=== PATIENT | female | born 1955 | race Caucasian/White ===

== ENCOUNTER 2016-09-20 15:36 | Inpatient (IN) | payer OTHER ==
[2016-09-20] MEDS ORDERED: NS 1,000 ML IV ONE (16:07)
--- NOTE | 2016-09-20 16:42 | UCPHY ---
H & P Patient Type: Established Chief Complaint Nursing Narrative: C/o shakiness since today, increased thirst, urinary urgency/frequency x 2 days. Denies flank pain, fevers. Time Seen by Provider: 09/20/16 15:56 HPI/ROS: CHIEF COMPLAINT: Shakiness, thirsty, urinary frequency HISTORY OF PRESENT ILLNESS: This is a 61-year-old patient with a significant history of diabetes for which she takes metformin, history of incomplete spinal cord paralysis, history of chronic pain presenting with complaints of for last 2 -3 days she has had urinary frequency, dysuria, and chills. No fever. She thinks she may have a urinary tract infection. She does have normal control of her bowels and bladder typically although she has been incontinent over the last several days. Patient also reports this morning that she felt she was having a diabetic episode with some confusion, headache, and feeling "shaky" today. Some nausea but no vomiting. No diarrhea. No chest pain, shortness of breath, palpitations, fainting, increase in her chronic pain. REVIEW OF SYSTEMS: Aside from elements discussed in the HPI, a comprehensive 10-point review of systems was reviewed and is negative. PAST MEDICAL HISTORY: Diabetes, incomplete spinal cord injury, Calvert's palsy SOCIAL HISTORY: Patient is a nonsmoker. She is here with her . She usually uses a walker. VITAL SIGNS Reviewed by me. GENERAL: Pleasant, well-developed, obvious right-sided facial weakness with incomplete eye closing and down turned mouth. HEENT: Atraumatic. Eyes: No icterus, no injection. Mouth: moist mucous membranes. No erythema or lesions. Neck: supple with no adenopathy. LUNGS: Clear to auscultation bilaterally, no wheezes, rhonchi or rales. CARDIAC: Regular rate and rhythm, no rubs, murmurs or gallops. ABDOMEN: Soft, nontender, nondistended, bowel sounds normal. BACK: No CVA tenderness. EXTREMITIES: No trauma. Chronic edema in lower extremities with venous stasis changes on the right. Healing wound in the right lower extremity. NEURO: Alert and oriented, moving all extremities x4. Sensation intact to light touch throughout. SKIN: Warm and dry, no rash. PSYCHIATRIC: Normal mentation, no agitation. - Personal History Current Tetanus Diphtheria and Acellular Pertussis (TDAP): Yes Tetanus Vaccine Date: 2012 - Medical/Surgical History Hx Asthma: No Hx Chronic Respiratory Disease: No Hx Diabetes: Yes Hx Cardiac Disease: No Hx Renal Disease: No Hx Cirrhosis: No Hx Alcoholism: No Hx HIV/AIDS: No Hx Splenectomy or Spleen Trauma: No Other PMH: DM, incomplete spinal cord injury, Hardy Palsy, osteomyletis, Cspine surgery, ortho surgeries, c section, ectopic preg, tonsilectomy, tubal ligation - Family History Significant Family History: No pertinent family hx - Social History Smoking Status: Never smoked Constitutional: Initial Vital Signs Temperature (C) 36.4 C 09/20/16 15:41 Heart Rate 69 09/20/16 15:41 Respiratory Rate 18 09/20/16 15:41 Blood Pressure 174/69 H 09/20/16 15:41 O2 Sat (%) 95 09/20/16 15:41 O2 Delivery Mode Room Air Allergies/Adverse Reactions: bacitracin [From Neosporin] Allergy (Intermediate, Verified 09/20/16 15:52) Rash bacitracin zinc [From Neosporin] Allergy (Intermediate, Verified 09/20/16 15:52) Rash gramicidin D [From Neosporin] Allergy (Intermediate, Verified 09/20/16 15:52) Rash neomycin sulfate [From Neosporin] Allergy (Intermediate, Verified 09/20/16 15:52 ) Rash polymyxin B [From Neosporin] Allergy (Intermediate, Verified 09/20/16 15:52) Rash polymyxin B sulfate [From Neosporin] Allergy (Intermediate, Verified 09/20/16 15 :52) Rash fluoroquinalones Allergy (Severe, Uncoded 09/20/16 15:52) muscle spasms Home Medications: Medication Instructions Recorded Baclofen [Baclofen 20 mg (*)] 10 mg PO BID@13,17 09/20/16 Baclofen [Baclofen 20 mg (*)] 20 mg PO QID@05,09,10,20 09/20/16 Dantrolene Sodium [Dantrium 25 mg 25 mg PO BID PRN 09/20/16 (*)] Guaifenesin/Pseudoephedrne HCl 1 each PO DAILY PRN 09/20/16 [Mucinex D ER 600-60 mg Tablet] Ibuprofen [Motrin (*)] 800 mg PO DAILY 09/20/16 LORazepam [Ativan (*)] 1 mg PO Q8H 09/20/16 Lansoprazole [Lansoprazole 15 mg] 15 mg PO DAILY 09/20/16 Levothyroxine [Synthroid 125 mcg 125 mcg PO TUWEFRSA@09/20/16 (*)] Levothyroxine [Synthroid 137 mcg 137 mcg PO SUMOTH@09/20/16 (*)] Lubiprostone [Amitiza 24 mcg (*)] 24 mcg PO DAILY 09/20/16 Methocarbamol [Robaxin 750 mg (*)] 375 mg PO BID 09/20/16 Morphine Sulfate [Morphine Sulfate] 30 mg PO TID@05,,09/20/16 Morphine Sulfate [Ms Contin] 15 mg PO TID@,,09/20/16 Multivitamins [Multivitamin (*)] 0.5 tab PO BID 09/20/16 Oxycodone HCl [Oxycodone HCl] 30 mg PO Q4H 09/20/16 Tizanidine HCl 4 mg PO BID 09/20/16 metFORMIN HCL [Glucophage 500 mg 500 mg PO BIDMEAL 09/20/16 (*)] traZODone [traZODONE 50MG (*)] 100 mg PO HS 09/20/16 valACYclovir [Valtrex (*)] 500 mg PO DAILY PRN 09/20/16 Medical Decision Making - Diagnostics EKG Interpretation: 12-LEAD EKG: Please see the full report in [facility]. My interpretation: Sinus rhythm, T-wave inversions in the anterior leads concerning for ischemia. No old EKGs available ED Course/Re-evaluation: 61-year-old female presents with symptoms of shakiness, feeling slightly confused, mild headache, feeling like her blood sugar is low, and concerns regarding a urinary tract infection. Patient's initial glucose was 117. EKG is concerned regarding potential ischemia. Laboratory evaluation is unremarkable including a troponin which was negative. Patient's urinalysis does not demonstrate any signs of infection. Long discussion was held with the patient concerning her symptoms of weakness, feeling poorly, and shakiness. This may represent cardiac ischemia. Patient now tells me that she has also fallen several times over the last 6 weeks. No injuries. She is not on any blood thinners. No loss of consciousness or direct head trauma with these falls. Given the patient's abnormal EKG in the setting of a 61-year-old diabetic with vague complaints of shakiness and feeling poorly I believe it is prudent to admit the patient to the hospital for further evaluation. Her course was discussed with Dr. Sergio Madrid. Patient is in agreement. She was transferred to [facility] and admitted to the PCU. Differential Diagnosis: Differential diagnosis of the patient's symptom complex was considered including but not limited to electrolyte abnormality, anemia, cardiac ischemia, CVA, spinal cord abnormality, and infectious causes. Consult/Admit Bed Type: Dr. Sergio Madrid, PCU - Data Points Laboratory Results: Laboratory Results 09/20/16 17:32 09/20/16 17:32 09/20/16 09/20/16 09/20/16 18:45 17:32 17:32 WBC 5.43 10^3/uL 10^3/uL (3.80-9.50) RBC 4.15 10^6/uL L 10^6/uL (4.18-5.33) Hgb 11.9 g/dL L g/dL (12.6-16.3) Hct 37.2 % L % (38.0-47.0) MCV 89.6 fL fL (81.5-99.8) MCH 28.7 pg pg (27.9-34.1) MCHC 32.0 g/dL L g/dL (32.4-36.7) RDW 13.2 % % (11.5-15.2) Plt Count 199 10^3/uL 10^3/uL (150-400) MPV 9.8 fL fL (8.7-11.7) Neut % (Auto) 68.1 % % (39.3-74.2) Lymph % (Auto) 20.6 % % (15.0-45.0) Graves % (Auto) 9.6 % % (4.5-13.0) Eos % (Auto) 0.9 % % (0.6-7.6) Baso % (Auto) 0.4 % % (0.3-1.7) Nucleat RBC Rel Count 0.0 % % (0.0-0.2) Absolute Neuts (auto) 3.70 10^3/uL 10^3/uL (1.70-6.50) Absolute Lymphs (auto) 1.12 10^3/uL 10^3/uL (1.00-3.00) Absolute Monos (auto) 0.52 10^3/uL 10^3/uL (0.30-0.80) Absolute Eos (auto) 0.05 10^3/uL 10^3/uL (0.03-0.40) Absolute Basos (auto) 0.02 10^3/uL 10^3/uL (0.02-0.10) Absolute Nucleated RBC 0.00 10^3/uL 10^3/uL (0-0.01) Immature Gran % 0.4 % % (0.0-1.1) Immature Gran # 0.02 10^3/uL 10^3/uL (0.00-0.10) Sodium 138 mEq/L mEq/L (134-144) Potassium 5.0 mEq/L mEq/L (3.5-5.2) Chloride 100 mEq/L mEq/L (97-110) Carbon Dioxide 29 mEq/l mEq/l (22-31) Anion Gap 9 mEq/L mEq/L (8-16) BUN 23 mg/dL mg/dL (7-23) Creatinine 0.6 mg/dL mg/dL (0.6-1.0) Estimated GFR > 60 Glucose 96 mg/dL mg/dL (70-100) POC Glucose Calcium 9.2 mg/dL mg/dL (8.5-10.4) Troponin I < 0.012 ng/mL ng/mL (0-0.034) Urine Color YELLOW Urine Appearance CLEAR Urine pH 6.5 (5.0-7.5) Ur Specific [place] 1.015 (1.002-1.030) Urine Protein NEGATIVE (NEGATIVE) Urine Ketones NEGATIVE (NEGATIVE) Urine Blood NEGATIVE (NEGATIVE) Urine Nitrate NEGATIVE (NEGATIVE) Urine Bilirubin NEGATIVE (NEGATIVE) Urine Urobilinogen 0.2 EU EU (0.2-1.0) Ur Leukocyte Esterase NEGATIVE (NEGATIVE) Urine RBC TNP Urine WBC REJ Ur Epithelial Cells TNP Urine Glucose NEGATIVE (NEGATIVE) 09/20/16 09/20/16 09/20/16 15:55 15:50 15:50 WBC REJ RBC TNP Hgb TNP Hct TNP MCV TNP MCH TNP MCHC TNP RDW TNP Plt Count TNP MPV TNP Neut % (Auto) TNP Lymph % (Auto) TNP Graves % (Auto) TNP Eos % (Auto) TNP Baso % (Auto) TNP Nucleat RBC Rel Count TNP Absolute Neuts (auto) TNP Absolute Lymphs (auto) TNP Absolute Monos (auto) TNP Absolute Eos (auto) TNP Absolute Basos (auto) TNP Absolute Nucleated RBC TNP Immature Gran % TNP Immature Gran # TNP Sodium TNP Potassium TNP Chloride TNP Carbon Dioxide TNP Anion Gap TNP BUN TNP Creatinine TNP Estimated GFR TNP Glucose TNP POC Glucose 117 mg/dL H mg/dL (70-100) Calcium TNP Troponin I REJ Urine Color Urine Appearance Urine pH Ur Specific [place] Urine Protein Urine Ketones Urine Blood Urine Nitrate Urine Bilirubin Urine Urobilinogen Ur Leukocyte Esterase Urine RBC Urine WBC Ur Epithelial Cells Urine Glucose Medications Given: Discontinued Medications Sodium Chloride (Ns) 1,000 mls @ 0 mls/hr IV ONCE ONE PRN Reason: Wide Open Stop: 09/20/16 16:08 Last Admin: 09/20/16 17:35 Dose: 1,000 mls Lorazepam (Ativan) 1 mg PO ONCE ONE Stop: 09/20/16 19:54 Last Admin: 09/20/16 20:10 Dose: 1 mg Morphine Sulfate (Ms Contin/Oramorph) 15 mg PO TID@05,13,21 JEREMIAH Stop: 09/30/16 23:01 Last Admin: 09/20/16 23:29 Dose: 15 mg Point of Care Test Results: 09/20/16 15:55 POC Glucose 117 H Departure - Departure Disposition: [facility] Inpatient Acute Clinical Impression: Weakness, Abnormal EKG Condition: Fair - PQRS PQRS Measurement: 134: Depression screening and followup, PRIME MD-PHQ2 (12 years and older) Over the last 2 weeks, how often have you been bothered by any of the following problems? 1. Feeling down, depressed, or hopeless? 2. Little interest or pleasure in doing things? Patient answered no to both 1 and 2 130: Documentation of medications. Reviewed all patient medications, doses, route and frequency. 226: Do you smoke? No. 47: 65 and older: Advanced care planning. Not applicable 51: 18 years old and older with diagnosis of COPD, spirometry performance. Patient has no history of COPD 52: 18 years old and older with COPD and symptoms of COPD or FEV1<60% predicted prescribed a B Agonist. Patient has no history of COPD
--- NOTE | 2016-09-20 16:55 | CPEKG ---
Heart Rate: 55 RR Interval: 1091 P-R Interval: 216 QRSD Interval: 106 QT Interval: 464 QTC Interval: 444 P Taylor: 36 QRS Taylor: 116 T Wave Taylor: 17 EKG Severity - ABNORMAL ECG - EKG Impression: SINUS RHYTHM EKG Impression: ABNORMAL T, CONSIDER ISCHEMIA, ANTERIOR LEADS Electronically Signed By: Marine Singh 21-Sep-2016 00:37:11
[2016-09-20 17:34] LABS: % IMMATURE GRANULYOCYTES 0.4 % (0.0-1.1); ABSOLUTE IMMATURE GRANULOCYTES 0.02 10^3/uL (0.00-0.10); ADD DIFF? NO; ADD MORPH? NO; ADD SCAN? NO; ATYPICAL LYMPHOCYTE FLAG 0 (0-99); FRAGMENT RBC FLAG 0 (0-99); HEMATOCRIT 37.2 % (38.0-47.0); HEMOGLOBIN 11.9 g/dL (12.6-16.3); LEFT SHIFT FLG 0 (0-99); LIPEMIA HEMOLYSIS FLAG 80 (0-99); MEAN CELL HEMOGLOBIN 28.7 pg (27.9-34.1); MEAN CELL VOLUME 89.6 fL (81.5-99.8); MEAN PLATELET VOLUME 9.8 fL (8.7-11.7); PLATELET CLUMPS FLAG 0 (0-99); PLATELET COUNT 199 10^3/uL (150-400); RED BLOOD CELL COUNT 4.15 10^6/uL (4.18-5.33); RED CELL DISTRIBUTION WIDTH 13.2 % (11.5-15.2)
[2016-09-20 17:46] LABS: ANION GAP 9 mEq/L (8-16); CALCIUM 9.2 mg/dL (8.5-10.4); CARBON DIOXIDE 29 mEq/l (22-31); CHLORIDE 100 mEq/L (97-110); CREATININE 0.6 mg/dL (0.6-1.0); GLOMERULAR FILTRATION RATE > 60; GLUCOSE 96 mg/dL (70-100)
[2016-09-20 17:49] LABS: SODIUM 138 mEq/L (134-144)
[2016-09-20 18:00] LABS: TROPONIN I < 0.012 ng/mL (0-0.034)
[2016-09-20 18:53] LABS: COLOR YELLOW; LEUKOCYTE ESTERASE,URINE NEGATIVE (NEGATIVE); NITRITE,URINE NEGATIVE (NEGATIVE); PH,URINE 6.5 (5.0-7.5)
[2016-09-20] MEDS ORDERED: LORazepam 1 MG TAB PO ONE (19:53)
[2016-09-20] MEDS ORDERED: ACETAMINOPHEN 325 MG TAB PO PRN (22:34)
[2016-09-20] MEDS ORDERED: oxyCODONE IR 5 MG TAB PO PRN (22:34)
[2016-09-20] MEDS ORDERED: ONDANSETRON DISINTEGRATING 4 MG TAB PO PRN (22:34)
[2016-09-20] MEDS ORDERED: ONDANSETRON 4 MG/2 ML VIAL IVP PRN (22:34)
[2016-09-20] MEDS ORDERED: traZODone 100 MG TAB PO PRN (22:55)
--- NOTE | 2016-09-20 22:56 | PDGENHP ---
History and Physical - Chief Complaint generalized weakness - History of Present Illness Patient is a 61-year-old female with a history type 2 diabetes, partial C1 spinal cord injury, hypothyroidism, osteoarthritis and PTSD who presented to [facility] complaining of generalized fatigue, lower extremity heaviness and urinary frequency. She states she 1st noticed her generalized fatigue about 3-5 days ago, as the days progress she felt heaviness in her legs , making it difficult for her to walk. She was unaware of any swelling in her legs, but states she never really looked, also reports chronic venous stasis changes of her skin but currently denies any pain or change in redness. Throughout this time she denies any overt fevers, chest pain, palpitations, shortness of breath, abdominal pain, nausea, vomiting or diarrhea. She also reports urinary frequency, but denies any dysuria or incontinence . Arrival to the [facility], patient was afebrile slightly hypertensive but hemodynamically stable. Labs revealed normal CBC, normal BMP with negative troponin. EKG revealed T-wave inversions in V2 to V4, with no prior to compare to. She also had extensive bilateral lower extremity edema. Given this she was transferred to [facility] for admission and further evaluation. History Information - Allergies/Home Medication List Allergies/Adverse Reactions: bacitracin [From Neosporin] Allergy (Intermediate, Verified 09/20/16 15:52) Rash bacitracin zinc [From Neosporin] Allergy (Intermediate, Verified 09/20/16 15:52) Rash gramicidin D [From Neosporin] Allergy (Intermediate, Verified 09/20/16 15:52) Rash neomycin sulfate [From Neosporin] Allergy (Intermediate, Verified 09/20/16 15:52 ) Rash polymyxin B [From Neosporin] Allergy (Intermediate, Verified 09/20/16 15:52) Rash polymyxin B sulfate [From Neosporin] Allergy (Intermediate, Verified 09/20/16 15 :52) Rash fluoroquinalones Allergy (Severe, Uncoded 09/20/16 15:52) muscle spasms Home Medications: Baclofen [Baclofen 20 mg (*)] 10 mg PO BID@13,17 09/20/16 [Last Taken 09/19/16] Baclofen [Baclofen 20 mg (*)] 20 mg PO QID@05,09,10,20 09/20/16 [Last Taken 10:00] Dantrolene Sodium [Dantrium 25 mg (*)] 25 mg PO BID PRN 09/20/16 [Last Taken 09:00] Guaifenesin/Pseudoephedrne HCl [Mucinex D ER 600-60 mg Tablet] 1 each PO DAILY PRN 09/20/16 [Last Taken 09/19/16] Ibuprofen [Motrin (*)] 800 mg PO DAILY 09/20/16 [Last Taken 09/19/16] LORazepam [Ativan (*)] 1 mg PO Q8H 09/20/16 [Last Taken 09/20/16 20:45] Lansoprazole [Lansoprazole 15 mg] 15 mg PO DAILY 09/20/16 [Last Taken 09/20/16] Levothyroxine [Synthroid 125 mcg (*)] 125 mcg PO TUWEFRSA@09/20/16 [Last Taken 09/20/16 06:00] Levothyroxine [Synthroid 137 mcg (*)] 137 mcg PO SUMOTH@09/20/16 [Last Taken 09/18/16] Lubiprostone [Amitiza 24 mcg (*)] 24 mcg PO DAILY 09/20/16 [Last Taken 09/20/16] Methocarbamol [Robaxin 750 mg (*)] 375 mg PO BID 09/20/16 [Last Taken 09/19/16] Morphine Sulfate [Morphine Sulfate] 30 mg PO TID@,,09/20/16 [Last Taken 09/20/16 13:00] Morphine Sulfate [Ms Contin] 15 mg PO TID@,,09/20/16 [Last Taken 13:00] Multivitamins [Multivitamin (*)] 0.5 tab PO BID 09/20/16 [Last Taken Unknown] Oxycodone HCl [Oxycodone HCl] 30 mg PO Q4H 09/20/16 [Last Taken 09/20/16 20:45] Tizanidine HCl 4 mg PO BID 09/20/16 [Last Taken 09/20/16 08:00] metFORMIN HCL [Glucophage 500 mg (*)] 500 mg PO BIDMEAL 09/20/16 [Last Taken 08:00] traZODone [traZODONE 50MG (*)] 100 mg PO HS 09/20/16 [Last Taken 09/19/16] valACYclovir [Valtrex (*)] 500 mg PO DAILY PRN 09/20/16 [Last Taken Unknown] I have personally reviewed and updated: family history, medical history, social history, surgical history - Past Medical History Additional medical history: Dm 2, on metformin only. partial spinal cord injury at C1. hypothyroidism. osteoarthritis. PTSD. right-sided Calvert's palsy. recently treated left ankle osteomyelitis, completed antibiotic course in mid August - Surgical History Additional surgical history: tonsillectomy. ectopic . x2. C-spine spinal cord untethering. left ankle/foot fracture repair. removal of left ankle hardware due to osteomyelitis. appendectomy - Family History Additional family history: father: Alzheimer's dementia, dm 2. mother: ETOH abuse - Social History Smoking Status: Never smoked Alcohol Use: None Drug Use: None Additional social history: patient lives with her and son. Ambulates with a walker Review of Systems ROS: 10pt was reviewed & negative except for what was stated in HPI & below Physical Exam Temp Pulse Resp BP Pulse Ox 36.3 C 65 16 159/77 H 97 09/20/16 21:15 09/20/16 21:15 09/20/16 21:15 09/20/16 21:15 09/20/16 21:15 O2 (L/minute) 2 Constitutional: no apparent distress, appears nourished, not in pain Eyes: PERRL, anicteric sclera, EOMI Ears, Nose, Mouth, Throat: moist mucous membranes, hearing normal, ears appear normal, no oral mucosal ulcers Cardiovascular: regular rate and rhythym, systolic murmur, pulses symmetric bilaterally, edema ( 2+ pitting edema of bilateral lower extremities to knee), No JVD Peripheral Pulses: 2+: dorsalis-pedis (R), dorsalis-pedis (L) Respiratory: no respiratory distress, no rales or rhonchi, clear to auscultation , No inspiratory crackles Gastrointestinal: normoactive bowel sounds, soft, non-tender abdomen, no palpable masses, No guarding, No rebound, No distension Genitourinary: no bladder fullness, no bladder tenderness Skin: other ( chronic venous stasis changes of bilateral lower extremities with erythema, superficial wound on right fuentes) Musculoskeletal: full muscle strength, no muscle tenderness, normal joint ROM, no joint effusions Neurologic: AAOx3, CN II-XII Intact, other ( no focal weakness, some sensory deficits in the lower extremity (chronic)) Lab Data & Imaging Review 09/20/16 17:32 09/20/16 17:32 WBC 5.43 10^3/uL (3.80-9.50) 09/20/16 17:32 RBC 4.15 10^6/uL (4.18-5.33) L 09/20/16 17:32 Hgb 11.9 g/dL (12.6-16.3) L 09/20/16 17:32 Hct 37.2 % (38.0-47.0) L 09/20/16 17:32 MCV 89.6 fL (81.5-99.8) 09/20/16 17:32 MCH 28.7 pg (27.9-34.1) 09/20/16 17:32 MCHC 32.0 g/dL (32.4-36.7) L 09/20/16 17:32 RDW 13.2 % (11.5-15.2) 09/20/16 17:32 Plt Count 199 10^3/uL (150-400) 09/20/16 17:32 MPV 9.8 fL (8.7-11.7) 09/20/16 17:32 Neut % (Auto) 68.1 % (39.3-74.2) 09/20/16 17:32 Lymph % (Auto) 20.6 % (15.0-45.0) 09/20/16 17:32 [place] % (Auto) 9.6 % (4.5-13.0) 09/20/16 17:32 Eos % (Auto) 0.9 % (0.6-7.6) 09/20/16 17:32 Baso % (Auto) 0.4 % (0.3-1.7) 09/20/16 17:32 Nucleat RBC Rel Count 0.0 % (0.0-0.2) 09/20/16 17:32 Absolute Neuts (auto) 3.70 10^3/uL (1.70-6.50) 02/18/17 17:32 Absolute Lymphs (auto) 1.12 10^3/uL (1.00-3.00) 09/20/16 17:32 Absolute Monos (auto) 0.52 10^3/uL (0.30-0.80) 09/20/16 17:32 Absolute Eos (auto) 0.05 10^3/uL (0.03-0.40) 09/20/16 17:32 Absolute Basos (auto) 0.02 10^3/uL (0.02-0.10) 09/20/16 17:32 Absolute Nucleated RBC 0.00 10^3/uL (0-0.01) 09/20/16 17:32 Immature Gran % 0.4 % (0.0-1.1) 09/20/16 17:32 Immature Gran # 0.02 10^3/uL (0.00-0.10) 09/20/16 17:32 Sodium 138 mEq/L (134-144) 09/20/16 17:32 Potassium 5.0 mEq/L (3.5-5.2) 09/20/16 17:32 Chloride 100 mEq/L (97-110) 09/20/16 17:32 Carbon Dioxide 29 mEq/l (22-31) 09/20/16 17:32 Anion Gap 9 mEq/L (8-16) 09/20/16 17:32 BUN 23 mg/dL (7-23) 09/20/16 17:32 Creatinine 0.6 mg/dL (0.6-1.0) 09/20/16 17:32 Estimated GFR > 60 09/20/16 17:32 Glucose 96 mg/dL (70-100) 09/20/16 17:32 POC Glucose 117 mg/dL (70-100) H 09/20/16 15:55 Calcium 9.2 mg/dL (8.5-10.4) 09/20/16 17:32 Troponin I < 0.012 ng/mL (0-0.034) 09/20/16 17:32 Urine Color YELLOW 09/20/16 18:45 Urine Appearance CLEAR 09/20/16 18:45 Urine pH 6.5 (5.0-7.5) 09/20/16 18:45 Ur Specific [place] 1.015 (1.002-1.030) 09/20/16 18:45 Urine Protein NEGATIVE (NEGATIVE) 09/20/16 18:45 Urine Ketones NEGATIVE (NEGATIVE) 09/20/16 18:45 Urine Blood NEGATIVE (NEGATIVE) 09/20/16 18:45 Urine Nitrate NEGATIVE (NEGATIVE) 09/20/16 18:45 Urine Bilirubin NEGATIVE (NEGATIVE) 09/20/16 18:45 Urine Urobilinogen 0.2 EU (0.2-1.0) 09/20/16 18:45 Ur Leukocyte Esterase NEGATIVE (NEGATIVE) 09/20/16 18:45 Urine RBC TNP 09/20/16 18:45 Urine WBC REJ 09/20/16 18:45 Ur Epithelial Cells TNP 09/20/16 18:45 Urine Glucose NEGATIVE (NEGATIVE) 09/20/16 18:45 Visualized and Interpreted EKG results: Yes EKG Interpretation: Positive for: normal sinsus rhythm ( with T-wave inversions in V2 through V4, III) Assessment & Plan Assessment: patient is a 61-year-old female with history of DM 2, partial spinal cord injury and hypothyroidism who presents to the ED with generalized fatigue, increasing lower extremity edema. EKG with nonspecific T-wave inversions, with no prior available for comparison. Plan: # generalized fatigue Patient states symptoms have been present for the past week or so, associated with lower extremity heaviness. Exam reveals pitting edema of lower extremities bilaterally, with no new focal neurologic changes. patient denies any cardiac symptomatology, other than fatigue. EKG shows sinus rhythm with nonspecific T-wave inversions. Infectious etiology seems unlikely given afebrile , without leukocytosis, UA negative and no infectious symptoms. Will check TTE to rule out new onset cardiomyopathy or valvular heart disease. Will also repeat EKG, trend troponins and monitor on telemetry, check TSH. # chronic venous stasis changes Patient states erythema and skin changes are at her baseline, the only new abnormality is the swelling. Given no leukocytosis, bilateral skin findings, low suspicion for cellulitis/infection. Will check lower extremity doppler as patient is at high risk for DVT due to limited mobility. Also f/u TTE and tsh. # chronic DM2 Glucose within normal limits on presentation. Will continue home metformin and monitor FS with sliding scale coverage prn. # upper spinal cord injury, chronic pain syndrome Patient on a number of spasticity related meds. It is possible polypharmacy is contributing to her fatigue, however, she denies any recent changes in her med regimen and requests continuation of all her home meds. # hypothyroidism Will check TSH to r/o hypothyroidism as cause of symptoms, and cont home synthroid dosing. # dispo: admit under observation status for generalized fatigue with normal labs work up. # gen: Cardiac/diabetic diet DVT ppx: lovenox Full code
[2016-09-20] MEDS ORDERED: LORazepam 1 MG TAB PO SCH (23:00)
[2016-09-20] MEDS ORDERED: morphINE SR 15 MG TAB PO SCH (23:03)
[2016-09-20] MEDS ORDERED: D50W 25 GM/50 ML SYR IVP PRN (23:08)
[2016-09-20] MEDS: BACLOFEN 20 MG TAB PO SCH (23:28)
[2016-09-20] MEDS: metFORMIN HCL 500 MG TAB PO SCH (23:29)
[2016-09-20] MEDS: BACLOFEN 10 MG TAB PO SCH (23:29)
[2016-09-21] MEDS: morphINE SR 15 MG TAB PO SCH ×4 (00:38→20:31)
[2016-09-21] MEDS: morphINE SR 30 MG TAB PO SCH ×4 (00:39→20:29)
[2016-09-21 01:13] LABS: TROPONIN I < 0.012 ng/mL (0-0.034)
[2016-09-21] MEDS: LEVOTHYROXINE 137 MCG TAB PO SCH (04:33)
[2016-09-21] MEDS: BACLOFEN 20 MG TAB PO SCH ×4 (04:34→20:31)
[2016-09-21] MEDS: METHOCARBAMOL 750 MG TAB PO SCH ×2 (04:41→20:29)
[2016-09-21] MEDS ORDERED: morphINE SR 15 MG TAB PO SCH (05:00)
[2016-09-21] MEDS ORDERED: BACLOFEN 20 MG TAB PO SCH (05:00)
[2016-09-21] MEDS ORDERED: morphINE SR 30 MG TAB PO SCH (05:00)
[2016-09-21] MEDS: LORazepam 1 MG TAB PO SCH ×3 (05:08→20:29)
[2016-09-21 05:25] LABS: % IMMATURE GRANULYOCYTES 0.2 % (0.0-1.1); ABSOLUTE IMMATURE GRANULOCYTES 0.01 10^3/uL (0.00-0.10); ADD DIFF? NO; ADD MORPH? NO; ADD SCAN? NO; ATYPICAL LYMPHOCYTE FLAG 10 (0-99); FRAGMENT RBC FLAG 0 (0-99); HEMATOCRIT 34.6 % (38.0-47.0); HEMOGLOBIN 11.1 g/dL (12.6-16.3); LEFT SHIFT FLG 0 (0-99); LIPEMIA HEMOLYSIS FLAG 80 (0-99); MEAN CELL HEMOGLOBIN 29.1 pg (27.9-34.1); MEAN CELL HEMOGLOBIN CONCENTR. 32.1 g/dL (32.4-36.7); MEAN CELL VOLUME 90.6 fL (81.5-99.8); MEAN PLATELET VOLUME 9.6 fL (8.7-11.7); PLATELET CLUMPS FLAG 0 (0-99); PLATELET COUNT 163 10^3/uL (150-400); RED BLOOD CELL COUNT 3.82 10^6/uL (4.18-5.33); RED CELL DISTRIBUTION WIDTH 13.2 % (11.5-15.2)
--- NOTE | 2016-09-21 05:32 | CPEKG ---
Heart Rate: 59 RR Interval: 1017 P-R Interval: 232 QRSD Interval: 104 QT Interval: 420 QTC Interval: 416 P [place]: 63 QRS [place]: 105 T Wave [place]: 48 EKG Severity - ABNORMAL ECG - EKG Impression: SINUS RHYTHM EKG Impression: FIRST DEGREE AV BLOCK EKG Impression: RIGHT AXIS DEVIATION Electronically Signed By: Edwina Dutton 21-Sep-2016 07:38:57
[2016-09-21 05:37] LABS: ANION GAP 8 mEq/L (8-16); CALCIUM 9.2 mg/dL (8.5-10.4); CARBON DIOXIDE 28 mEq/l (22-31); CHLORIDE 106 mEq/L (97-110); CREATININE 0.6 mg/dL (0.6-1.0); GLOMERULAR FILTRATION RATE > 60; GLUCOSE 68 mg/dL (70-100); MAGNESIUM 1.8 mg/dL (1.6-2.3); POTASSIUM 4.3 mEq/L (3.5-5.2); SODIUM 142 mEq/L (134-144)
[2016-09-21 05:45] LABS: APTT 29.9 SEC (23.0-38.0); INR 1.04 (0.83-1.16); PROTIME(PATIENT) 13.5 SEC (12.0-15.0)
[2016-09-21 05:46] LABS: TROPONIN I < 0.012 ng/mL (0-0.034)
[2016-09-21] MEDS: INSULIN LISPRO 100 UNIT/ML SC SCH ×3 (07:57→17:36)
[2016-09-21] MEDS: metFORMIN HCL 500 MG TAB PO SCH ×2 (08:57→17:35)
[2016-09-21] MEDS: MULTIVITAMINS 1 EACH TAB PO SCH ×2 (08:58→20:30)
[2016-09-21] MEDS: PANTOPRAZOLE SODIUM 40 MG TAB PO SCH (08:58)
[2016-09-21] MEDS: ENOXAPARIN 40 MG/0.4 ML SYR SC SCH (08:58)
[2016-09-21] MEDS ORDERED: METHOCARBAMOL 750 MG TAB PO SCH (09:00)
[2016-09-21] MEDS: [UNRECOGNIZED DRUG - OTHER] PO PRN (09:28)
[2016-09-21] MEDS: LUBIPROSTONE 24 MCG CAP PO SCH (09:28)
[2016-09-21] MEDS: BACLOFEN 10 MG TAB PO SCH ×2 (13:06→17:35)
--- NOTE | 2016-09-21 14:43 | HOSPPROG ---
Hospitalist Progress Note Assessment/Plan: Weakness in a 61 yo female with diabetes, partial C1 spinal cord injury, neuropathy and abnormal EKG - Trops neg x3 making ACS unlikely, but still feel we should r/o cardiac ischemia with a lexiscan prior to DC given her T wave inversions on EKG. She is CP free, but with her diabetes and spinal cord injury , she may have atypical symptoms. -Rosy scan in am -minimize sedating medications Sinus symptoms - may have viral URI contributing to weakness. Will check flu swab, start flonase. LE edema - CXR suggestive of mild HF, echo pending. Will start low dose lasix and follow. C1 spinal cord injury, partial - cont anti-spasmodics, pt uses walker for ambulation Full code Dispo - change to inpt as she requires ongoing workup to r/o cardiac ischemia Subjective: Pt continues to report generalized weakness. C/O sinus congestion. No CP or SOB. LE edema persists. Objective: Vital Signs Temp Pulse Resp BP Pulse Ox 36.5 C 67 18 142/67 H 94 09/21/16 11:30 09/21/16 11:30 09/21/16 11:30 09/21/16 11:30 09/21/16 11:30 Laboratory Results 09/21/16 04:53 09/21/16 04:53 09/20/16 09/21/16 09/22/16 05:59 05:59 05:59 Intake Total 1300 Output Total 700 1100 Balance 600 -1100 PT 13.5 SEC (12.0-15.0) 09/21/16 04:53 INR 1.04 (0.83-1.16) 09/21/16 04:53 - Physical Exam Constitutional: no apparent distress Eyes: PERRL Ears, Nose, Mouth, Throat: moist mucous membranes Cardiovascular: regular rate and rhythym, no murmur, rub, or gallop Respiratory: no respiratory distress, clear to auscultation Gastrointestinal: normoactive bowel sounds, soft, non-tender abdomen Skin: warm Musculoskeletal: other (b/l 1-2+ LE pitting edema) Neurologic: AAOx3 Psychiatric: interacting appropriately ICD10 Worksheet Patient Problems: Problems Problem Status Onset Abnormal EKG Acute Weakness Acute Wound infection Acute
--- NOTE | 2016-09-21 14:47 | ECHO ---
[id number] + + [address] : : [place] [address] : : [phone] + + Adult Echocardiographic Report + ----+ :Name: TRISTA STYLES JStudy Date: 09/21/2016 01:04 PM : : Hospital Admission Number: [id number] Location: 214: :: 1955 Gender: Female Height: 66 in : :Age: 61 yrs Race: WH Weight: 188 lb : :Reason For Study: Eval LV Fx : : BSA: 1.9 meters2 : :History: Bilateral LE Edema : + ----+ MMode/2D Measurements \T\ Calculations IVSd: 0.89 cm LVIDd: 4.1 cm FS: 45.0 % Ao root diam: 3.1 cm LVPWd: 1.1 cm LVIDs: 2.2 cm EDV(Teich): 73.7 ml ACS: 2.0 cm ESV(Teich): 17.1 ml EF(Teich): 76.8 % Normal Measurement Values: + + :LVIDd (3.5-5.7cm) IVSd (0.6-1.1cm) LVPWd (0.6-1.1cm) Aortic Root (2.0-3.7cm)Left Atrium (1.5-4.0cm): :LV Vol(d) (76-115ml) LV Vol(s) (29-48ml) Ejec Fraction (50-65%)PV Gabino (0.6- 1.2m/s) TV Gabino (0.4-1.0m/s) : :MV E Gabino (0.8-1.0m/s)MV A Gabino (0.3-1.0m/s)LVOT Gabino (0.7-1.2m/s) Asc Ao Gabino ( 0.9-1.8m/s) : + + Doppler Measurements \T\ Calculations MV E max gabino: Ao V2 max: LV V1 max: PA V2 max: 79.5 cm/sec 156.1 cm/sec 83.9 cm/sec 92.3 cm/sec MV A max gabino: Ao max P.7 mmHg LV V1 max PG: PA max P.8 cm/sec 2.8 mmHg 3.4 mmHg MV E/A: 1.4 Left Ventricle The left ventricle is normal in size. There is normal left ventricular wall thickness. The left ventricular ejection fraction is normal. There is Doppler evidence for diastolic dysfunction. Ejection Fraction = 77%. The left ventricular wall motion is normal. Right Ventricle The right ventricle is normal in size and function. Atria The left atrial size is normal. Right atrial size is normal. Mitral Valve The mitral valve is normal in structure and function. There is no evidence of mitral valve prolapse. There is no mitral valve stenosis. There is trace to mild mitral regurgitation. Tricuspid Valve There is trace to mild tricuspid regurgitation. Aortic Valve The aortic valve is normal in structure and function. The aortic valve is trileaflet. There is no aortic stenosis. There is no aortic insufficiency. Pulmonic Valve The pulmonic valve is normal in structure and function. There is no pulmonic valvular regurgitation. Great Vessels The aortic root is normal size. Pericardium/Pleural There is no pericardial effusion. Conclusion A complete two-dimensional transthoracic echocardiogram was performed (2D, M-mode, Doppler and color flow Doppler). The left ventricle is normal in size. There is normal left ventricular wall thickness. The left ventricular ejection fraction is normal. Ejection Fraction = 77%. The left ventricular wall motion is normal. There is Doppler evidence for diastolic dysfunction. The right ventricle is normal in size and function. Normal appearing valvular structures. There is trace to mild mitral regurgitation. There is trace to mild tricuspid regurgitation. There is no pericardial effusion. PA systolic pressure could not be estimated. Final Reading Physician: Gerard Chadwick signed on 09/21/2016 02:45 PM Ordering Physician: Jannet Wilkes Performed By: Reece Licona, CS
[2016-09-21] MEDS: FUROSEMIDE 20 MG TAB PO SCH (15:21)
[2016-09-21] MEDS: FLUTICASONE NASAL 120 SPRAYS/16 GM MDI EACHNARE SCH (15:21)
[2016-09-21] MEDS ORDERED: traZODone 100 MG TAB PO SCH (21:00)
[2016-09-22] MEDS: LORazepam 1 MG TAB PO SCH ×2 (04:02→12:25)
[2016-09-22] MEDS: BACLOFEN 20 MG TAB PO SCH ×3 (04:03→09:00)
[2016-09-22] MEDS: morphINE SR 30 MG TAB PO SCH ×2 (04:03→12:25)
[2016-09-22] MEDS: morphINE SR 15 MG TAB PO SCH ×2 (04:03→12:25)
[2016-09-22 05:17] LABS: ANION GAP 8 mEq/L (8-16); CARBON DIOXIDE 27 mEq/l (22-31); CHLORIDE 104 mEq/L (97-110); CREATININE 0.6 mg/dL (0.6-1.0); GLOMERULAR FILTRATION RATE > 60; GLUCOSE 78 mg/dL (70-100); POTASSIUM 3.4 mEq/L (3.5-5.2); SODIUM 139 mEq/L (134-144)
[2016-09-22] MEDS: LEVOTHYROXINE 137 MCG TAB PO SCH (05:30)
[2016-09-22] MEDS: ENOXAPARIN 40 MG/0.4 ML SYR SC SCH (07:43)
[2016-09-22] MEDS: MULTIVITAMINS 1 EACH TAB PO SCH (07:43)
[2016-09-22] MEDS: PANTOPRAZOLE SODIUM 40 MG TAB PO SCH (07:43)
[2016-09-22] MEDS: FUROSEMIDE 20 MG TAB PO SCH (07:44)
[2016-09-22] MEDS: metFORMIN HCL 500 MG TAB PO SCH (07:44)
[2016-09-22] MEDS: METHOCARBAMOL 750 MG TAB PO SCH (07:50)
[2016-09-22] MEDS: LUBIPROSTONE 24 MCG CAP PO SCH (07:59)
[2016-09-22 08:09] VITALS: RESP 18
[2016-09-22] MEDS: INSULIN LISPRO 100 UNIT/ML SC SCH ×2 (09:27→11:49)
[2016-09-22] MEDS ORDERED: REGADENOSON 0.4 MG/5 ML SYR IVP ONE (10:23)
--- NOTE | 2016-09-22 11:11 | PDCARST ---
CAR Stress Test Results Type of Stress Test: Lexiscan stress test Indication: abn ecg and weakness Description of Procedure: After informed consent was obtained, pt was established to ECG, blood pressure, oximetry, and heart rate monitoring. Vitals were stable at baseline. ECG showed SR with ant/sept T wave inversions. Lexiscan was infused with minimal side effects. Vitals remained stable throughout testing and into recovery. No ECG changes with Lexiscan. No arrhythmias. Impression: Uneventful Lexiscan infusion Conclusion: Await nuclear images
[2016-09-22] MEDS: FLUTICASONE NASAL 120 SPRAYS/16 GM MDI EACHNARE SCH ×2 (11:47→11:54)
[2016-09-22] MEDS: [UNRECOGNIZED DRUG - OTHER] PO PRN (11:47)
[2016-09-22] MEDS: BACLOFEN 10 MG TAB PO SCH (12:25)
[2016-09-22 12:33] VITALS: BP 166/91; PULSE 85; TEMP 97.8; O2SAT 93
[2016-09-22 15:12] LABS: CHOLESTEROL 146 mg/dL (140-220); CHOLESTEROL/HDL RATIO 2.15 RATIO (1.00-4.44); HIGH DENSITY LIPOPROTEIN 68 mg/dL (40-85); LDL/HDL RATIO 0.97 RATIO (1.00-3.22); LOW DENSITY LIPOPROTEIN 66 mg/dL (80-100); NON-HIGH DENSITY LIPOPROTEIN 78 mg/dL (90-129); TRIGLYCERIDE 62 mg/dL (35-135); VERY LOW DENSITY LIPOPROTEINS 12 mg/dL (8-25)
--- NOTE | 2016-09-23 03:21 | GDS ---
[f rep st] DISCHARGE SUMMARY DISCHARGE DIAGNOSES: 1. Generalized weakness, improved. 2. Abnormal nuclear medicine stress test. 3. Upper respiratory symptoms. 4. Lower extremity edema. 5. Partial C1 spinal cord injury. CONSULTANTS: None. PROCEDURES: 1. Myocardial perfusion scan performed September 22, 2016, showed normal EF of 75%. There is modera te septal infarct with a small area of probable associated reversible ischemia. 2. Bilateral lower extremity ultrasound was negative for DVT. HISTORY: For details please see dictated history and physical dated September 21, 2016, by Dr. Deja Wilkes. In brief, the patient is a 61-year-old female with history of type 2 diabetes and a partial C1 spina l cord injury who presents to the emergency department with lower extremity heaviness and generalize d fatigue. She is admitted to the hospital for further management. HOSPITAL COURSE: The patient was admitted to the progressive care unit. Her EKG on admission was a bnormal with some T-wave inversions in the anterior leads. Her troponins were negative. She did no t complain of chest pain. She underwent cardiac stress testing given some worsening T-wave inversio ns on her repeat EKG and some concern for an atypical presentation for ischemia given her diabetes a nd neuropathy. Stress test results were above. Cardiology consult was obtained and given her lack of anginal symptoms, it was recommended she follow up with [facility] in the outpatient setting w ith plans to repeat her stress test at some point in future. I do think she warrants medical manage ment given evidence of a prior septal infarct. She was started on baby aspirin, low-dose beta block er and a lipid panel is obtained to assess her lipid status indication for statins. I think the met oprolol is also indicated for her elevated blood pressures. So she can have her blood pressure rech ecked in the [facility]. Echocardiogram was performed during hospitalization which showed an EF of 77%. There was no wall motion abnormality. There was Doppler evidence for diastolic dysfu nction. Given her lower extremity edema which seems to be causing her more symptoms, she was starte d on low-dose Lasix. Her symptoms significantly improved. Her fasting lipid panel revealed LDL of 66, an HDL of 68, which is overall reassuring. Therefore, statin therapy will be deferred at this ti me. She can follow up with Cardiology to further discuss this. DISPOSITION: Patient is discharged home in stable condition. DISCHARGE MEDICATIONS: Please see [facility] for complete updated outpatient medication list. New me dications on discharge include aspirin 81 mg p.o. daily #30, no refills, metoprolol 12.5 mg p.o. twi ce daily, #30, no refills, Lasix 20 mg p.o. daily #30, no refills and Flonase 2 sprays daily #30, no refills. FOLLOWUP: 1. Dr. Usama Swanson, primary care provider, for blood pressure recheck. She will need a basic metabolic panel in 1 week given the initiation of low-dose Lasix to check her renal function and jason ctrolytes. 2. Dr. Jonnathan Molina at the [facility]. /[id number]/MODL
[2016-09-23] MEDS ORDERED: LEVOTHYROXINE 125 MCG TAB PO SCH (06:00)
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
== END 2016-09-22 15:35 | disposition home or self-care (01) | DRG 948 ==
LOC: CED 15:36 → CEDHOLD 19:21 → INTOOBSV 19:21 → F2W 21:09 → OBSVTOIN 09-21 14:40
PROVIDERS: ADMIT Internal Medicine; ATTEND Internal Medicine
DX: R53.1 Weakness (principal); R32 Unspecified urinary incontinence; R94.31 Abnormal electrocardiogram [ECG] [EKG]; R60.0 Localized edema; G62.9 Polyneuropathy, unspecified; E11.9 Type 2 diabetes mellitus without complications; G51.0 Bell's palsy; S14.13 Anterior cord syndrome of cervical spinal cord; E03.9 Hypothyroidism, unspecified; F43.10 Post-traumatic stress disorder, unspecified; G89.4 Chronic pain syndrome; Z79.84 Long term (current) use of oral hypoglycemic drugs
CPT/HCPCS: 80048-PO; 81003-PO; 81015-PO; 82947-QW; 84484-PO; 85025-PO; 93010-PO; 96360-PO; 97161-GP; 97162-GP; 99215-PO; A9500; G0463-PO; G8978-GP-CI; G8979-GP-CI; G8980-GP-CI; J1650; J1815; J2785

== ENCOUNTER 2018-07-16 07:23 | Inpatient (IN) | payer OTHER ==
[2018-07-16 09:33] LABS: PLATELET COUNT 194 10^3/uL (150-400)
--- NOTE | 2018-07-16 09:36 | EDPHY ---
General Time Seen by Provider: 07/16/18 09:00 Narrative: CHIEF COMPLAINT: Can't walk, leg weakness HISTORY OF PRESENT ILLNESS: Patient presents by private vehicle with her spouse with complaints of being unable to walk with increasing leg weakness. She reports a remote partial spinal cord injury of the cervical spine back in the 80s. She has had problems from this chronically with a reported un tethering surgery in 1988. She has had increasing weakness, pain and numbness over the past 10 days. This has caused her to be unable to ambulate. She has no incontinence of bowel or bladder. She has no footdrop. She has no chest pain or shortness of breath but no difficulty breathing. She does have increasing neck and lumbar back pain. No trauma to the low back. No fever chills. She has no other associated complaints or modifying factors. REVIEW OF SYSTEMS: 10 systems were reviewed and negative with the exception of the elements mentioned in the history of present illness. PCP: Dr. Swanson SPECIALISTS: Pain management PAST MEDICAL HISTORY: Partial cervical spinal cord injury, meningitis seal, diabetes mellitus non- insulin-dependent, Calvert's palsy, osteomyelitis, ectopic PAST SURGICAL HISTORY: Cervical spine and a tethering, tubal ligation, orthopedic surgeries, tonsillectomy SOCIAL HISTORY: Nonsmoker FAMILY HISTORY: Noncontributory EXAMINATION: Vitals: Triage VS reviewed General Appearance: Alert, no distress Head: normocephalic, atraumatic Eyes: Pupils equal and round, no conjunctival pallor or injection ENT, Mouth: Mucous membranes moist Neck: Normal inspection, supple, no meningismus but mild tenderness of the lower cervical spine. No step-off or deformity. Range of motion intact. Respiratory: Lungs are clear to auscultation Cardiovascular: Regular rate and rhythm Gastrointestinal: Obese Abdomen is soft and nontender. Nondistended. Back: Tenderness of the lumbar musculature midline and paraspinous musculature. No step-off, crepitus or deformity. Neurological: A&O, nonfocal, symmetric weakness of the lower extremities from the knees, ankles and hips at 3/5. Strength of the upper extremities symmetric at 4/5. Light sensory is symmetric in the upper lower extremities. Reported paresthesias of the lower extremities. Skin: Warm and dry, no rash. Venous stasis dermatitis. No evidence of cellulitis or abscess over the cervical or lumbar spine. Extremities: Nontender, symmetric, nonpitting pedal edema. There is evidence of venous stasis. Psychiatric: Mood and affect normal DIFFERENTIAL DIAGNOSES: Including but not limited to acute cord compression, Guillain-Debord, nerve entrapment, weakness, demyelination, electrolyte disturbance, pneumonia, ACS, UTI, deconditioning MDM: 9:05 a.m. Increasing neck and low back pain with reports of weakness and inability to ambulate due to this. There is no evidence of acute cord compression. Given her history I have ordered MRIs of the cervical lumbar spine. Laboratory studies will be obtained. She is awake alert. No acute distress. Her sensory appears to be intact but she is symmetrically weak lower extremities. 9:40 a.m. Laboratory studies reveal a normal glucose level. There is evidence of urinary tract infection. I will order IV Rocephin for this. MRIs are currently being obtained. 10:55 a.m. Notified by radiologist. 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 Other chronic changes noted as documented. MRI of the lumbar spine pending. 11:23 a.m Notified by radiologist. MRI lumbar spine findings discussed. Multilevel degenerative disc and chronic changes. No acute findings. No acute cord compression. 11:30 a.m. Case discussed with neurosurgeon Dr. Castaneda. He will provide consultation on the patient. He is requesting an MRI of the thoracic spine given the lack of obvious source of her weakness. I have also have a page to the hospitalist for admission. 11:39 a.m. Case discussed with hospitalist Ginny Lai. Patient will be admitted to Dr. Rosa Elena Mcghee. She is admitted in stable condition with the MRI of the thoracic spine pending. 1:30 p.m. Notified by radiologist that the MRI of the thoracic spine is unremarkable for any acute findings. There are chronic changes as noted. Patient remains emergency department awaiting her inpatient bed. She has been seen by primary care physician and neurosurgeon. Neurosurgery feels is no surgical emergency and recommends neurology consultation. SUPERVISION: Patient was independently examined, but I discussed the case with my secondary supervising physician Dr. Anderson CONSULTATION: Neurosurgery - Diagnostics Imaging Results: Imaging Impressions Cervical Spine MRI 07/16/18 09:06 Impression: 1. Postoperative changes related to posterior laminectomy at C2 and C3 segments. 2. CSF signal related to presumed posttraumatic syrinx from C2 to C3 level. 3. Mild degenerative disk disease mid to lower cervical spine that along with posterior bar formation contributes to borderline to mild spinal stenosis and left-sided neuroforaminal stenoses as detailed above. 4. Accentuation of the lordosis of the mid to lower cervical spine and anterior kyphosis of the upper thoracic spine with anterior wedge compression fractures of T3, T4, and T5. Please see findings at specific disk levels. Findings discussed with Kenan Gates PAC at 10:59 hour, 07/16/2018. Lumbar Spine MRI 07/16/18 09:06 Impression: 1. Minimal disk disease at L3-L4 and L4-L5 along with facet hypertrophy and ligamentum flavum hypertrophy contributes to spinal stenosis and neuroforaminal stenosis as detailed above. 2. No acute changes seen about the lumbar spine. Findings discussed with Kenan Gates PAC at 11:23 hour, 07/16/2018. Imaging: Discussed imaging studies w/ call center support consultant Radiologist, I viewed and interpreted images myself - History History Review: I reviewed the patient's medical records, I obtained additional history from the patient's family Smoking Status: Never smoked - Objective Vital Signs: Initial Vital Signs Temperature (C) 97.3 F 07/16/18 07:23 Heart Rate 75 07/16/18 07:23 Respiratory Rate 16 07/16/18 07:23 Blood Pressure 130/54 H 07/16/18 07:23 O2 Sat (%) 88 L 07/16/18 07:23 O2 Delivery Mode Nasal Cannula O2 (L/minute) 2 Allergies/Adverse Reactions: bacitracin [From Neosporin] Allergy (Intermediate, Verified 09/20/16 15:52) Rash bacitracin zinc [From Neosporin] Allergy (Intermediate, Verified 09/20/16 15:52) Rash gramicidin D [From Neosporin] Allergy (Intermediate, Verified 09/20/16 15:52) Rash neomycin sulfate [From Neosporin] Allergy (Intermediate, Verified 09/20/16 15:52 ) Rash polymyxin B [From Neosporin] Allergy (Intermediate, Verified 09/20/16 15:52) Rash polymyxin B sulfate [From Neosporin] Allergy (Intermediate, Verified 09/20/16 15 :52) Rash fluoroquinalones Allergy (Severe, Uncoded 09/20/16 15:52) muscle spasms Home Medications: Medication Instructions Recorded Baclofen [Baclofen 20 mg (*)] 20 mg PO 05,,,,09/20/16 Dantrolene Sodium [Dantrium 25 mg 25 mg PO BID@,09/20/16 (*)] Levothyroxine [Synthroid 125 mcg 125 mcg PO Q2D 09/20/16 (*)] Levothyroxine [Synthroid 137 mcg 137 mcg PO Q2D 09/20/16 (*)] Lubiprostone [Amitiza 24 mcg (*)] 24 mcg PO DAILY10 09/20/16 Morphine Sulfate 30 mg PO TID@,,09/20/16 Morphine Sulfate [Ms Contin] 15 mg PO TID@,,09/20/16 guaiFENesin/PSEUDOEPHEDRNE HCL 1 each PO DAILY PRN 09/20/16 [Mucinex D ER 600-60 mg Tablet] metFORMIN HCL [Glucophage 500 mg 500 mg PO BIDMEAL 09/20/16 (*)] valACYclovir [Valtrex (*)] 500 mg PO DAILY PRN 09/20/16 Furosemide [Lasix 20 MG (*)] 20 mg PO DAILY10 07/16/18 Lisinopril [Zestril 5 mg (*)] 5 mg PO DAILY 07/16/18 amLODIPine BESYLATE [Norvasc 5 mg 5 mg PO DAILY 07/16/18 (*)] oxyCODONE IR [Oxycodone Ir (*)] 20 mg PO 5XD PRN 07/16/18 Laboratory Results: Laboratory Results 07/16/18 09:29 07/16/18 09:29 07/16/18 07/16/18 07/16/18 09:37 09:29 09:29 WBC 4.71 10^3/uL 10^3/uL (3.80-9.50) RBC 3.83 10^6/uL L 10^6/uL (4.18-5.33) Hgb 11.5 g/dL L g/dL (12.6-16.3) POC Hgb 11.6 gm/dL L gm/dL (12.6-16.3) Hct 34.7 % L % (38.0-47.0) POC Hct 34 % L % (38-47) MCV 90.6 fL fL (81.5-99.8) MCH 30.0 pg pg (27.9-34.1) MCHC 33.1 g/dL g/dL (32.4-36.7) RDW 14.5 % % (11.5-15.2) Plt Count 194 10^3/uL 10^3/uL (150-400) MPV 9.4 fL fL (8.7-11.7) Neut % (Auto) 71.1 % % (39.3-74.2) Lymph % (Auto) 17.4 % % (15.0-45.0) [place] % (Auto) 9.6 % % (4.5-13.0) Eos % (Auto) 1.1 % % (0.6-7.6) Baso % (Auto) 0.4 % % (0.3-1.7) Nucleat RBC Rel Count 0.0 % % (0.0-0.2) Absolute Neuts (auto) 3.35 10^3/uL 10^3/uL (1.70-6.50) Absolute Lymphs (auto) 0.82 10^3/uL L 10^3/uL (1.00-3.00) Absolute Monos (auto) 0.45 10^3/uL 10^3/uL (0.30-0.80) Absolute Eos (auto) 0.05 10^3/uL 10^3/uL (0.03-0.40) Absolute Basos (auto) 0.02 10^3/uL 10^3/uL (0.02-0.10) Absolute Nucleated RBC 0.00 10^3/uL 10^3/uL (0-0.01) Immature Gran % 0.4 % % (0.0-1.1) Immature Gran # 0.02 10^3/uL 10^3/uL (0.00-0.10) POC Sodium 142 mEq/L mEq/L (135-145) Sodium 140 mEq/L mEq/L (135-145) POC Potassium 3.9 mEq/L mEq/L (3.3-5.0) Potassium 4.3 mEq/L mEq/L (3.5-5.2) POC Chloride 102 mEq/L mEq/L (97-110) Chloride 105 mEq/L mEq/L (97-110) Carbon Dioxide 28 mEq/l mEq/l (22-31) Anion Gap 7 mEq/L mEq/L (6-14) POC BUN 18 mg/dL mg/dL (7-23) BUN 19 mg/dL mg/dL (7-23) Creatinine 0.6 mg/dL mg/dL (0.6-1.0) POC Creatinine 0.6 mg/dL mg/dL (0.6-1.0) Estimated GFR > 60 Glucose 109 mg/dL H mg/dL (70-100) POC Glucose 112 mg/dL H mg/dL (70-100) Calcium 9.0 mg/dL mg/dL (8.5-10.4) Urine Color Urine Appearance Urine pH Ur Specific [place] Urine Protein Urine Ketones Urine Blood Urine Nitrate Urine Bilirubin Urine Urobilinogen Ur Leukocyte Esterase Urine RBC Urine WBC Ur Epithelial Cells Ur Renal Epithelial Cell Urine Crystals Ammonium Urate Crystals Calcium Carbonate Cryst Calcium Phosphate Cryst Calcium Oxalate Crystal Leucine Crystals Cystine Crystals Uric Acid Crystals Triple Phos Crystals Sulfonamide Crystals Cholesterol Crystals Tyrosine Crystals Bilirubin Crystals Amorphous Sediment Urine Bacteria Epithelial Casts Fatty Casts Hyaline Casts Granular Casts Waxy Casts Broad Casts RBC Casts WBC Casts Urine Mucus Urine Trichomonas Urine Yeast Urine Sperm Ur Oval Fat Bodies Ur Free Fat Droplets Urine Glucose Urine Comment 07/16/18 07/16/18 08:48 08:48 WBC RBC Hgb POC Hgb Hct POC Hct MCV MCH MCHC RDW Plt Count MPV Neut % (Auto) Lymph % (Auto) [place] % (Auto) Eos % (Auto) Baso % (Auto) Nucleat RBC Rel Count Absolute Neuts (auto) Absolute Lymphs (auto) Absolute Monos (auto) Absolute Eos (auto) Absolute Basos (auto) Absolute Nucleated RBC Immature Gran % Immature Gran # POC Sodium Sodium POC Potassium Potassium POC Chloride Chloride Carbon Dioxide Anion Gap POC BUN BUN Creatinine POC Creatinine Estimated GFR Glucose POC Glucose Calcium Urine Color YELLOW Urine Appearance HAZY Urine pH 6.0 (5.0-7.5) Ur Specific [place] 1.015 (1.002-1.030) Urine Protein NEGATIVE (NEGATIVE) Urine Ketones NEGATIVE (NEGATIVE) Urine Blood NEGATIVE (NEGATIVE) Urine Nitrate NEGATIVE (NEGATIVE) Urine Bilirubin NEGATIVE (NEGATIVE) Urine Urobilinogen NEGATIVE EU EU (0.2-1.0) Ur Leukocyte Esterase 3+ H (NEGATIVE) Urine RBC Cancelled 1-3 /hpf /hpf (0-3) Urine WBC Cancelled 25-50 /hpf H /hpf (0-3) Ur Epithelial Cells Cancelled 1+ /lpf /lpf (NONE-1+) Ur Renal Epithelial Cell Cancelled Urine Crystals Cancelled Ammonium Urate Crystals Cancelled Calcium Carbonate Cryst Cancelled Calcium Phosphate Cryst Cancelled Calcium Oxalate Crystal Cancelled Leucine Crystals Cancelled Cystine Crystals Cancelled Uric Acid Crystals Cancelled Triple Phos Crystals Cancelled Sulfonamide Crystals Cancelled Cholesterol Crystals Cancelled Tyrosine Crystals Cancelled Bilirubin Crystals Cancelled Amorphous Sediment Cancelled Urine Bacteria Cancelled TRACE /hpf H /hpf (NONE SEEN) Epithelial Casts Cancelled Fatty Casts Cancelled Hyaline Casts Cancelled Granular Casts Cancelled Waxy Casts Cancelled Broad Casts Cancelled RBC Casts Cancelled WBC Casts Cancelled Urine Mucus Cancelled TRACE /lpf /lpf (NONE-1+) Urine Trichomonas Cancelled Urine Yeast Cancelled Urine Sperm Cancelled Ur Oval Fat Bodies Cancelled Ur Free Fat Droplets Cancelled Urine Glucose NEGATIVE (NEGATIVE) Urine Comment Cancelled Medications Given: Discontinued Medications Ceftriaxone Sodium/Dextrose (Rocephin 1 Gm (Premix)) 50 mls @ 100 mls/hr IV EDNOW ONE PRN Reason: Protocol Stop: 07/16/18 10:40 Last Admin: 07/16/18 11:12 Dose: 50 mls Sodium Chloride (Ns) 500 mls @ 0 mls/hr IV EDNOW ONE; Wide Open PRN Reason: Protocol Stop: 07/16/18 10:13 Last Admin: 07/16/18 11:19 Dose: 500 mls Point of Care Test Results: Chemistry 07/16/18 09:37 POC Sodium 142 mEq/L mEq/L (135-145) POC Potassium 3.9 mEq/L mEq/L (3.3-5.0) POC Chloride 102 mEq/L mEq/L (97-110) POC BUN 18 mg/dL mg/dL (7-23) POC Creatinine 0.6 mg/dL mg/dL (0.6-1.0) POC Glucose 112 mg/dL H mg/dL (70-100) ISTAT H&H 07/16/18 09:37 POC Hgb 11.6 gm/dL L gm/dL (12.6-16.3) POC Hct 34 % L % (38-47) Departure - Departure Disposition: [facility] Inpatient Acute Clinical Impression: Post-traumatic syrinx Lower extremity weakness Qualifiers: Laterality: bilateral Qualified Code(s): R29.898 - Other symptoms and signs involving the musculoskeletal system UTI (urinary tract infection) Qualifiers: Urinary tract infection type: acute cystitis Hematuria presence: without hematuria Qualified Code(s): N30.00 - Acute cystitis without hematuria Condition: Good
[2018-07-16] MEDS ORDERED: NS 500 ML IV ONE (10:12)
[2018-07-16] MEDS ORDERED: ONDANSETRON DISINTEGRATING 4 MG TAB PO PRN (14:12)
[2018-07-16] MEDS ORDERED: ACETAMINOPHEN 325 MG TAB PO PRN (14:12)
[2018-07-16] MEDS ORDERED: ONDANSETRON 4 MG/2 ML VIAL IVP PRN (14:12)
[2018-07-16] MEDS ORDERED: NS 1,000 ML IV SCH (14:15)
[2018-07-16] MEDS ORDERED: D50W 25 GM/50 ML SYR IVP PRN (14:26)
--- NOTE | 2018-07-16 15:16 | NEUROPROG ---
Assessment: Neurology phone consultation: I spoke to Hospital Medicine while the patient was being evaluated in the ED. Essentially, this is a patient with a very complex spine history with structural abnormalities. She is on multiple psychotropic/pain medications. She came in with increasing weakness in lower extremities. Apparently, exam is variable. In addition, she was found to have a UTI. We discussed at length. This certainly may be a decompensation related to the infection. She will be hydrated and given antibiotics for her urinary tract infection. She will be evaluated by PT and OT as well. Disposition per therapies and hospital medicine. If she does not continue to improve with treatment of the urinary tract infection and hydration, please contact Neurology service for formal evaluation. She was seen by Neurosurgery and they did not see any structural abnormalities to explain the symptoms. Imaging reviewed. Objective: Vital Signs Temp Pulse Resp BP Pulse Ox 36.9 C 76 18 131/57 H 93 07/16/18 15:07 07/16/18 15:07 07/16/18 15:07 07/16/18 15:07 07/16/18 15:07 Allergies/Adverse Reactions: bacitracin [From Neosporin] Allergy (Intermediate, Verified 09/20/16 15:52) Rash bacitracin zinc [From Neosporin] Allergy (Intermediate, Verified 09/20/16 15:52) Rash gramicidin D [From Neosporin] Allergy (Intermediate, Verified 09/20/16 15:52) Rash neomycin sulfate [From Neosporin] Allergy (Intermediate, Verified 09/20/16 15:52 ) Rash polymyxin B [From Neosporin] Allergy (Intermediate, Verified 09/20/16 15:52) Rash polymyxin B sulfate [From Neosporin] Allergy (Intermediate, Verified 09/20/16 15 :52) Rash fluoroquinalones Allergy (Severe, Uncoded 09/20/16 15:52) muscle spasms
--- NOTE | 2018-07-16 15:25 | PDGENHP ---
History and Physical - Chief Complaint weakness - History of Present Illness Ale Pickard is a 63 year old female with pmh of spinal cord injury in the late 80s with subsequent chronic weakness, DM, HTN, chronic pain, who presented to the ER with complaints of increased weakness over the last 10 days. she says that she has upper extremity weakness at base and this is unchanged but she feels like she has progressively had increased ablity to walk, and use her lower extremities. she has chronic pain all over and this has not changed in her opinion, although her and her seem to disagree on this during the interview. She says that from her hips down her weakness is worse. Normally she uses a walker and now it takes her much longer to get up, and walking is more difficult. she feels more clumsy and less coordinated while ambulating. She has not had any trauma, or suffered any falls. she has not been ill recently and no flu or gi like illnesses preceded her weakness. She does not know if the weakness started in her hips or feet first and thinks it just started in her legs and hips and feet all at once. she does not have any fevers, chills, NV, diarrhea, dysuria or other symptoms. Her legs are quite swollen but this has not changed. History Information - Allergies/Home Medication List Allergies/Adverse Reactions: bacitracin [From Neosporin] Allergy (Intermediate, Verified 09/20/16 15:52) Rash bacitracin zinc [From Neosporin] Allergy (Intermediate, Verified 09/20/16 15:52) Rash gramicidin D [From Neosporin] Allergy (Intermediate, Verified 09/20/16 15:52) Rash neomycin sulfate [From Neosporin] Allergy (Intermediate, Verified 09/20/16 15:52 ) Rash polymyxin B [From Neosporin] Allergy (Intermediate, Verified 09/20/16 15:52) Rash polymyxin B sulfate [From Neosporin] Allergy (Intermediate, Verified 09/20/16 15 :52) Rash fluoroquinalones Allergy (Severe, Uncoded 09/20/16 15:52) muscle spasms Home Medications: Baclofen [Baclofen 20 mg (*)] 20 mg PO 05,10,13,17,21 09/20/16 [Last Taken 07/16 05:00] Dantrolene Sodium [Dantrium 25 mg (*)] 25 mg PO BID@,09/20/16 [Last Taken 07/16/18] Levothyroxine [Synthroid 125 mcg (*)] 125 mcg PO Q2D 09/20/16 [Last Taken ] Levothyroxine [Synthroid 137 mcg (*)] 137 mcg PO Q2D 09/20/16 [Last Taken ] Lubiprostone [Amitiza 24 mcg (*)] 24 mcg PO DAILY10 09/20/16 [Last Taken ] Morphine Sulfate 30 mg PO TID@,,09/20/16 [Last Taken 07/16/18 05:00] Morphine Sulfate [Ms Contin] 15 mg PO TID@,,09/20/16 [Last Taken 05:00] guaiFENesin/PSEUDOEPHEDRNE HCL [Mucinex D ER 600-60 mg Tablet] 1 each PO DAILY PRN 09/20/16 [Last Taken 09/19/16] metFORMIN HCL [Glucophage 500 mg (*)] 500 mg PO BIDMEAL 09/20/16 [Last Taken 18:00] valACYclovir [Valtrex (*)] 500 mg PO DAILY PRN 09/20/16 [Last Taken Unknown] Furosemide [Lasix 20 MG (*)] 20 mg PO DAILY10 07/16/18 [Last Taken 07/15/18] Lisinopril [Zestril 5 mg (*)] 5 mg PO DAILY 07/16/18 [Last Taken 07/16/18] amLODIPine BESYLATE [Norvasc 5 mg (*)] 5 mg PO DAILY 07/16/18 [Last Taken ] oxyCODONE IR [Oxycodone Ir (*)] 20 mg PO 5XD PRN 07/16/18 [Last Taken 07/16/18] I have personally reviewed and updated: family history, medical history, social history, surgical history - Past Medical History diabetes type 2, hypertension Additional medical history: Dm 2, on metformin only. partial spinal cord injury at C1. hypothyroidism. osteoarthritis. PTSD. right-sided Calvert's palsy. recently treated left ankle osteomyelitis, completed antibiotic course in mid August - Surgical History Additional surgical history: tonsillectomy. ectopic . x2. C-spine spinal cord untethering. left ankle/foot fracture repair. removal of left ankle hardware due to osteomyelitis. appendectomy - Family History Positive for: non-pertinent Additional family history: father: Alzheimer's dementia, dm 2. mother: ETOH abuse - Social History Smoking Status: Never smoked Alcohol Use: None Drug Use: None Additional social history: patient lives with her and son. Ambulates with a walker Review of Systems Review of Systems: ROS: 10pt was reviewed & negative except for what was stated in HPI & below Physical Exam Physical Exam: Temp Pulse Resp BP Pulse Ox 36.9 C 76 18 131/57 H 93 07/16/18 15:07 07/16/18 15:07 07/16/18 15:07 07/16/18 15:07 07/16/18 15:07 O2 (L/minute) 2 Constitutional: no apparent distress, appears nourished, not in pain Eyes: PERRL, anicteric sclera, EOMI Ears, Nose, Mouth, Throat: moist mucous membranes, hearing normal, ears appear normal, no oral mucosal ulcers Cardiovascular: regular rate and rhythym, no murmur, rub, or gallop, No edema Respiratory: no respiratory distress, no rales or rhonchi, clear to auscultation Gastrointestinal: normoactive bowel sounds, soft, non-tender abdomen, no palpable masses Genitourinary: no bladder fullness, no bladder tenderness Skin: warm, normal color, no rashes or abrasions, no fluctuance, no induration, other (icthyosis in legs bilaterally with chronic venous changes. ), No mottled Musculoskeletal: other (thenar wasting in hands noted, decreased strength in upper extremities, with brisk reflexes. Lower extremity strength 4/5 bilaterally with good sensation bilaterally. No clonus, and no babinski) Neurologic: AAOx3, weakness, other (thenar wasting noted in upper extremities bilaterally with decreaased sewing line baler strength noted. Brisk upper extremity reflexes. Lower extremities with good sensation, and strength 4/5 bilaterally. No clonus, no babinski) Psychiatric: interacting appropriately, not anxious, not encephalopathic, thought process linear Lymph, Heme, Immunologic: no cervical LAD, no supraclavicular LAD Lab Data & Imaging Review 07/16/18 09:29 07/16/18 09: WBC 4.71 10^3/uL (3.80-9.50) 07/16/18 09: RBC 3.83 10^6/uL (4.18-5.33) L 07/16/18 09: Hgb 11.5 g/dL (12.6-16.3) L 07/16/18 09: POC Hgb 11.6 gm/dL (12.6-16.3) L 07/16/18 09:37 Hct 34.7 % (38.0-47.0) L 07/16/18 09: POC Hct 34 % (38-47) L 07/16/18: MCV 90.6 fL (81.5-99.8) 07/16/18: MCH 30.0 pg (27.9-34.1) 07/16/18 MCHC 33.1 g/dL (32.4-36.7) 07/16/18 RDW 14.5 % (11.5-15.2) 07/16/18: Plt Count 194 10^3/uL (150-400) 07/16/18: MPV 9.4 fL (8.7-11.7) 07/16/18 Neut % (Auto) 71.1 % (39.3-74.2) 07/16/18: Lymph % (Auto) 17.4 % (15.0-45.0) 07/16/18 [place] % (Auto) 9.6 % (4.5-13.0) 07/16/18: Eos % (Auto) 1.1 % (0.6-7.6) 07/16/18: Baso % (Auto) 0.4 % (0.3-1.7) 07/16/18 Nucleat RBC Rel Count 0.0 % (0.0-0.2) 07/16/18 Absolute Neuts (auto) 3.35 10^3/uL (1.70-6.50) 07/16/18 09: Absolute Lymphs (auto) 0.82 10^3/uL (1.00-3.00) L 07/16/18 09:29 Absolute Monos (auto) 0.45 10^3/uL (0.30-0.80) 07/16/18 09:29 Absolute Eos (auto) 0.05 10^3/uL (0.03-0.40) 07/16/18 09:29 Absolute Basos (auto) 0.02 10^3/uL (0.02-0.10) 07/16/18 09:29 Absolute Nucleated RBC 0.00 10^3/uL (0-0.01) 07/16/18 09:29 Immature Gran % 0.4 % (0.0-1.1) 07/16/18 09:29 Immature Gran # 0.02 10^3/uL (0.00-0.10) 07/16/18 09:29 POC Sodium 142 mEq/L (135-145) 07/16/18 09:37 Sodium 140 mEq/L (135-145) 07/16/18 09:29 POC Potassium 3.9 mEq/L (3.3-5.0) 07/16/18 09:37 Potassium 4.3 mEq/L (3.5-5.2) 07/16/18 09:29 POC Chloride 102 mEq/L (97-110) 07/16/18 09:37 Chloride 105 mEq/L (97-110) 07/16/18 09:29 Carbon Dioxide 28 mEq/l (22-31) 07/16/18 09:29 Anion Gap 7 mEq/L (6-14) 07/16/18 09:29 POC BUN 18 mg/dL (7-23) 07/16/18 09:37 BUN 19 mg/dL (7-23) 07/16/18 09:29 Creatinine 0.6 mg/dL (0.6-1.0) 07/16/18 09:29 POC Creatinine 0.6 mg/dL (0.6-1.0) 07/16/18 09:37 Estimated GFR > 60 07/16/18 09:29 Glucose 109 mg/dL (70-100) H 07/16/18 09:29 POC Glucose 112 mg/dL (70-100) H 07/16/18 09:37 Calcium 9.0 mg/dL (8.5-10.4) 07/16/18 09:29 Urine Color YELLOW 07/16/18 08:48 Urine Appearance HAZY 07/16/18 08:48 Urine pH 6.0 (5.0-7.5) 07/16/18 08:48 Ur Specific [place] 1.015 (1.002-1.030) 07/16/18 08:48 Urine Protein NEGATIVE (NEGATIVE) 07/16/18 08:48 Urine Ketones NEGATIVE (NEGATIVE) 07/16/18 08:48 Urine Blood NEGATIVE (NEGATIVE) 07/16/18 08:48 Urine Nitrate NEGATIVE (NEGATIVE) 07/16/18 08:48 Urine Bilirubin NEGATIVE (NEGATIVE) 07/16/18 08:48 Urine Urobilinogen NEGATIVE EU (0.2-1.0) 07/16/18 08:48 Ur Leukocyte Esterase 3+ (NEGATIVE) H 07/16/18 08:48 Urine RBC 1-3 /hpf (0-3) 07/16/18 08:48 Urine WBC 25-50 /hpf (0-3) H 07/16/18 08:48 Ur Epithelial Cells 1+ /lpf (NONE-1+) 07/16/18 08:48 Ur Renal Epithelial Cell Cancelled 07/16/18 08:48 Urine Crystals Cancelled 07/16/18 08:48 Ammonium Urate Crystals Cancelled 07/16/18 08:48 Calcium Carbonate Cryst Cancelled 07/16/18 08:48 Calcium Phosphate Cryst Cancelled 07/16/18 08:48 Calcium Oxalate Crystal Cancelled 07/16/18 08:48 Leucine Crystals Cancelled 07/16/18 08:48 Cystine Crystals Cancelled 07/16/18 08:48 Uric Acid Crystals Cancelled 07/16/18 08:48 Triple Phos Crystals Cancelled 07/16/18 08:48 Sulfonamide Crystals Cancelled 07/16/18 08:48 Cholesterol Crystals Cancelled 07/16/18 08:48 Tyrosine Crystals Cancelled 07/16/18 08:48 Bilirubin Crystals Cancelled 07/16/18 08:48 Amorphous Sediment Cancelled 07/16/18 08:48 Urine Bacteria TRACE /hpf (NONE SEEN) H 07/16/18 08:48 Epithelial Casts Cancelled 07/16/18 08:48 Fatty Casts Cancelled 07/16/18 08:48 Hyaline Casts Cancelled 07/16/18 08:48 Granular Casts Cancelled 07/16/18 08:48 Waxy Casts Cancelled 07/16/18 08:48 Broad Casts Cancelled 07/16/18 08:48 RBC Casts Cancelled 07/16/18 08:48 WBC Casts Cancelled 07/16/18 08:48 Urine Mucus TRACE /lpf (NONE-1+) 07/16/18 08:48 Urine Trichomonas Cancelled 07/16/18 08:48 Urine Yeast Cancelled 07/16/18 08:48 Urine Sperm Cancelled 07/16/18 08:48 Ur Oval Fat Bodies Cancelled 07/16/18 08:48 Ur Free Fat Droplets Cancelled 07/16/18 08:48 Urine Glucose NEGATIVE (NEGATIVE) 07/16/18 08:48 Urine Comment Cancelled 07/16/18 08:48 Visualized and Interpreted imaging results: Yes Assessment & Plan Assessment: Lower extremity weakness- MRI results reviewed. Case discussed with neurosurgery who feels that imaging not suggestive of any new acute injury or change to explain symptoms and on indication for acute intervention. Case also discussed with tool honing machine set up operator neurology who feels that patient has a history of cord injury and that possible cause of new weakness in patient with hx of cord injury would be UTI. He recommends treating possible underlying UTI, ordering PT /OT and hydrating patient. if no improvement and worsening weakness or new symptoms re consult neurology for review. -treat underlying UTI -PT/OT -hydrate. -Monitor neuro status UTI- Urine with LE, given rocephin in ER. will continue rocephin IV while in house Chronic pain- patient with chronic generalized pain, takes 45 mg ms contin TID, baclofen, dantrolene, and oxycodone 25 5x daily. Will continue home dose of ms contin, and provide PRN oxycodone along with home dose of baclofen and dantrolene. type 2 DM- on metformin bid. Hold and cover with SSI while here. HTN- takes lisinopril and norvasc. continue here. Hypothyroid- cont home dose PPX- SCDs, lovenoc Fluids- NS Lytes- WNL Nutrition- diabetic diet Cor- DNR Dispo- observation for weakness and uti.
[2018-07-16] MEDS: BACLOFEN 20 MG TAB PO SCH ×2 (16:28→23:01)
[2018-07-16] MEDS: oxyCODONE IR 5 MG TAB PO PRN ×2 (16:28→23:14)
[2018-07-16] MEDS: INSULIN LISPRO 100 UNIT/ML SC SCH (18:10)
[2018-07-16] MEDS: [UNRECOGNIZED DRUG - OTHER] PO SCH (23:00)
[2018-07-16] MEDS: morphINE SR 30 MG TAB PO SCH (23:01)
[2018-07-16] MEDS: morphINE SR 15 MG TAB PO SCH (23:01)
--- NOTE | 2018-07-17 04:46 | GCON ---
ER CONSULTATION NOTE DATE OF CONSULTATION: 07/16/2018 TIME OF CONSULTATION: 1:45 p.m. HISTORY OF PRESENT ILLNESS: The patient is a very pleasant 63-year-old woman with a known history of prior spinal cord injury of the cervical spine that dates into 1986. The patient has had a subsequent cervical surgery with untethering of her spinal cord in the cervical region around 1988 down at [facility] in July. She presents to the emergency department at [facility] today because the patient's states that she has been having more and more issues with her gait and instability since September of 2017. Symptoms have been a lot worse in the last 10 days to the point where the patient has now been having difficulty with ambulation and now causing her to fall. No loss of bowel or bladder function. She has baseline left upper extremity and right lower extremity weakness from her prior spinal cord injury. Her symptoms appear to be waxing and waning but overall declining. No viral symptoms or infectious etiology. No acute changes of loss of weight. REVIEW OF SYSTEMS: Complete 10-point review of systems from the patient intake form reviewed by myself significant only for those noted above in the HPI. PAST MEDICAL HISTORY: 1. Spinal cord injury, with subsequent small spinal cord decompression and untethering. 2. History of meningitis. 3. Diabetes mellitus non-insulin dependent. 4. History of Calvert palsy. 5. Osteomyelitis. 6. Ectopic . PAST SURGICAL HISTORY: 1. Two cervical surgeries including decompression with subsequent de-tethering in 1988 at [facility] in [place]. 2. Tubal ligation. 3. Multiple orthopedic surgeries. 4. Tonsillectomy. SOCIAL HISTORY: The patient is . She does not use tobacco. No other illicit drug use. FAMILY HISTORY: Noncontributory. ALLERGIES: 1. Bacitracin caused a rash. 2. Gramicidin D caused a rash. 3. Neomycin caused a rash. 4. Polymyxin B caused a rash. 5. Fluoroquinolones caused muscle spasms. HOME MEDICATIONS: 1. Baclofen 20 mg p.o. q.4-6 hours. 2. Dantrolene 25 mg p.o. twice daily. 3. Levothyroxine 125 mg p.o. q.2 days. 4. Levothyroxine 137 mcg p.o. q.2 days. 5. Amitiza 24 mcg p.o. daily. 6. Morphine sulfate 30 mg p.o. three times daily. 7. MS Contin 50 mg p.o. three times daily. 8. Mucinex D ER 1 tablet p.o. daily p.r.n. 9. Metformin 500 mg p.o. twice daily. 10. Valtrex 5 mg p.o. daily p.r.n. 11. Lasix 20 mg p.o. daily. 12. Lisinopril 5 mg p.o. daily. 13. Amlodipine 5 mg p.o. daily. 14. Oxycodone IR 20 mg p.o. q.5 times a day p.r.n. MEDICAL DECISION MAKING: Patient underwent a cervical, thoracic and lumbar spine MRI without contrast completed at [facility] and reviewed by myself on the PACs system. MRI of the cervical spine demonstrates postoperative changes related to posterior laminectomy of C2-C3 with small posttraumatic syrinx from C2-C3 level without expansion of the spinal cord. There is mild degenerative disk disease in the mid to lower cervical spine along the posterior formation borderline mild spinal stenosis and left-sided neural foraminal stenosis. MRI of the thoracic spine without contrast demonstrates moderate chronic anterior wedge compression deformities of T4 and T3 with minimal anterior wedge compression deformity and chronic appearance of T5, T7, T8 but no acute fractures. No significant spinal canal or neural foraminal encroachment. MRI of the lumbar spine without contrast demonstrates minimal disk disease at L3-L4, L4-L5 with facet hypertrophy and ligamentum hypertrophy with minimal spinal stenosis and mild bilateral neural foraminal stenosis. LABS: White count 4.71, hematocrit 34.7, hemoglobin 11.5, platelets 194. Sodium 140, potassium 4.3, BUN of 19, creatinine 0.6. PHYSICAL EXAMINATION: VITAL SIGNS: Blood pressure 132/57. Heart rate 71. Respiratory rate 20. Satting 91% on 2 L nasal cannula. Temperature 36.3. GENERAL APPEARANCE: Patient is alert, in no acute distress. She is lying in a gurney with her at her side. HEAD: Atraumatic, normocephalic. EYES: Pupils equal, round, and react to light bilaterally with no conjunctival pallor or injection. ENT: Mouth oral mucosa is moist. NEUROLOGIC: Cranial nerves 2- 12 demonstrate right-sided facial weakness but otherwise appear to be intact with diminished sensation on the right side consistent with a Calvert palsy. She is A and O x3. Tongue protrudes midline. Uvula and palate elevate symmetrically. She has diminished sensation to light touch on the right side of her face. Decreased facial strength on the right side and normal on the left with both strength and sensation. She has intact hearing to light finger scratch bilaterally. Shoulder shrug is symmetric. Motor exam: She has 5/5 strength in the right upper extremity with gas plant worker strength, biceps, triceps, deltoid, she has 4+/5 strength in the left gas plant worker, left biceps, left triceps, left deltoid. In the lower extremities, she has 5/5 strength in left hip flexion, knee flexion and extension, plantar and dorsiflexion, and extensor hallucis longus. She has 5-/5 right lower extremity hip flexor, plantar dorsiflexion, extensor hallucis longus on the right. Sensory exam: She has diminished sensation to light touch throughout the right lower extremity compared to the left lower extremity. SKIN: Patient has erythema and edema of the bilateral lower extremities below the knees with scaling of the skin. ASSESSMENT AND PLAN: The patient is a 63-year-old woman with history of prior cervical spinal cord injury, status post 2 cervical surgeries. She presents with waxing and waning diffuse weakness in her upper and lower extremities. There is no concerning stenosis on her MRI scans to explain her symptomatology. She does have a posttraumatic syrinx which is very small and I do not think is contributing to her current complaints. The neural foraminal stenosis in the lumbar spine also does not appear to be contributory to her symptoms in my opinion. At this point, she does have worsening edema and what almost looks like cellulitis in her bilateral lower extremities below the knees. At this point, I do not see a surgical intervention and have recommended admission to the medical service, and I have discussed this case with the internal medicine team who is admitting her. I have recommended neurology consult for further input and further workup. I discussed with the patient and her who are both in agreement with this treatment plan. Please note, the patient is seen at 1:45 by myself in the emergency department. We will go ahead and sign off. Please do not hesitate to contact us with any questions or concerns, or if there are any changes in neurological condition which you think Neurosurgery should be involved. Thank you for this consultation. /[id number]/MODL MTDD
[2018-07-17] MEDS: morphINE SR 15 MG TAB PO SCH ×3 (04:50→22:07)
[2018-07-17] MEDS: BACLOFEN 20 MG TAB PO SCH ×5 (04:50→22:07)
[2018-07-17] MEDS: morphINE SR 30 MG TAB PO SCH ×3 (04:50→22:08)
[2018-07-17] MEDS: oxyCODONE IR 5 MG TAB PO PRN ×4 (04:59→22:08)
[2018-07-17 05:45] LABS: PLATELET COUNT 168 10^3/uL (150-400)
[2018-07-17] MEDS: ENOXAPARIN 40 MG/0.4 ML SYR SC SCH (09:27)
[2018-07-17] MEDS: INSULIN LISPRO 100 UNIT/ML SC SCH ×3 (09:27→18:45)
[2018-07-17] MEDS: [UNRECOGNIZED DRUG - OTHER] PO SCH ×2 (09:28→22:08)
[2018-07-17] MEDS: amLODIPine BESYLATE 5 MG TAB PO SCH (09:28)
[2018-07-17] MEDS: FUROSEMIDE 20 MG TAB PO SCH (09:28)
[2018-07-17] MEDS: LISINOPRIL 5 MG TAB PO SCH (09:28)
[2018-07-17] MEDS: LEVOTHYROXINE 137 MCG TAB PO SCH (10:26)
[2018-07-17] MEDS ORDERED: MAGNESIUM HYDROXIDE 30 ML UDCUP PO PRN (13:39)
[2018-07-17] MEDS ORDERED: BISACODYL 10 MG SUPP PR PRN (13:39)
[2018-07-17] MEDS ORDERED: POLYETHYLENE GLYCOL 3350 17 GM PKT PO PRN (13:39)
[2018-07-17] MEDS ORDERED: LACTULOSE 20 GM/30 ML UDCUP PO PRN (13:39)
--- NOTE | 2018-07-17 16:38 | HOSPPROG ---
Hospitalist Progress Note Assessment/Plan: 63 year old female with pmh of spinal cord injury admitted with UTI and increased lower extremity weakness. Lower extremity weakness- MRI results reviewed. Case discussed with neurosurgery who feels that imaging not suggestive of any new acute injury or change to explain symptoms and on indication for acute intervention. Case also discussed with in tube conversion technician neurology who feels that patient has a history of cord injury and that possible cause of new weakness in patient with hx of cord injury would be UTI. He recommends treating possible underlying UTI, ordering PT /OT and hydrating patient. if no improvement and worsening weakness or new symptoms re consult neurology for review. -treat underlying UTI -PT/OT -hydrate. -Monitor neuro status UTI- Urine with LE, given rocephin in ER. will continue rocephin IV while in house Chronic pain- patient with chronic generalized pain, takes 45 mg ms contin TID, baclofen, dantrolene, and oxycodone 25 5x daily. Will continue home dose of ms contin, and provide PRN oxycodone along with home dose of baclofen and dantrolene. type 2 DM- on metformin bid. Hold and cover with SSI while here. HTN- takes lisinopril and norvasc. continue here. Hypothyroid- cont home dose PPX- SCDs, lovenoc Fluids- NS Lytes- WNL Nutrition- regular diet Cor- DNR Dispo- change to inpatient as she is too weak to discharge and PT/OT recommending inpatient rehab. Objective: Vital Signs Temp Pulse Resp BP Pulse Ox 36.8 C 62 14 120/58 L 95 07/17/18 16:00 07/17/18 16:00 07/17/18 16:00 07/17/18 16:00 07/17/18 16:00 Laboratory Results 07/17/18 05:20 07/17/18 05:20 07/16/18 07/17/18 07/18/18 05:59 05:59 05:59 Output Total 600 Balance -600 - Physical Exam Constitutional: no apparent distress, appears nourished, not in pain Eyes: PERRL, anicteric sclera, EOMI Ears, Nose, Mouth, Throat: moist mucous membranes, hearing normal, ears appear normal, no oral mucosal ulcers Cardiovascular: regular rate and rhythym, no murmur, rub, or gallop Respiratory: no respiratory distress, no rales or rhonchi, clear to auscultation Gastrointestinal: normoactive bowel sounds, soft, non-tender abdomen, no palpable masses Genitourinary: no bladder fullness, no bladder tenderness, no renal bruits Skin: no rashes or abrasions, no fluctuance, no induration Musculoskeletal: full muscle strength, no muscle tenderness, normal joint ROM Neurologic: AAOx3, sensation intact bilaterally Psychiatric: interacting appropriately, not anxious, not encephalopathic, thought process linear Lymph, Heme, Immunologic: no cervical LAD, no supraclavicular LAD ICD10 Worksheet Patient Problems: Problems Problem Status Onset Lower extremity weakness Acute Post-traumatic syrinx Acute UTI (urinary tract infection) Acute Abnormal EKG Acute Weakness Acute Wound infection Acute
--- NOTE | 2018-07-17 18:17 | ASMTCMCOM ---
CM Note CM Note Notes: Chart review completed and spoke with the pt's hospitalist. Per chart pt lives with spouse. Pt admitted for UTI and increased lower extremity weakness in the setting of an old spinal cord injury. PT is recommending inpatient rehab and provider placed order for eval which cannot happen until Thursday. [facility] notified via phone. CM to follow. D/C Plan : [facility] pending eval on Thursday Date Signed: 07/17/2018 06:17 PM Electronically Signed By:Laly Teresa
[2018-07-17] MEDS: SENNOSIDES/DOCUSATE SODIUM TAB PO SCH (22:06)
[2018-07-18] MEDS: oxyCODONE IR 5 MG TAB PO PRN ×4 (03:08→22:18)
[2018-07-18] MEDS: morphINE SR 15 MG TAB PO SCH ×3 (05:08→21:23)
[2018-07-18] MEDS: morphINE SR 30 MG TAB PO SCH ×3 (05:08→21:23)
[2018-07-18] MEDS: BACLOFEN 20 MG TAB PO SCH ×5 (05:08→21:23)
--- NOTE | 2018-07-18 09:00 | PDMN ---
Medical Necessity Medical necessity: MCG: M300 UTI A-2 days : status changed to INPT 07/17 for ongoing med nec. care > 2 MN., further tx of IVF, IV abx needed. 63 yr old female with PMH of spinal cord injury with UTI and increased lower extremity weakness, pt with persistent weakness req further PT.OT.
--- NOTE | 2018-07-18 09:17 | CPEKG ---
Test Reason : OPEN Blood Pressure : / mmHG Vent. Rate : 062 BPM Atrial Rate : 061 BPM P-R Int : 205 ms QRS Dur : 120 ms QT Int : 459 ms P-R-T Axes : -08 136 040 degrees QTc Int : 467 ms Sinus rhythm Confirmed by Rustam Merritt [id number]) on 07/18/2018 9:17:05 AM Referred By: Confirmed By:Rustam Merritt
[2018-07-18] MEDS: INSULIN LISPRO 100 UNIT/ML SC SCH ×3 (10:19→17:39)
[2018-07-18] MEDS: FUROSEMIDE 20 MG TAB PO SCH (10:49)
[2018-07-18] MEDS: LISINOPRIL 5 MG TAB PO SCH (10:49)
[2018-07-18] MEDS: amLODIPine BESYLATE 5 MG TAB PO SCH (10:49)
[2018-07-18] MEDS: LEVOTHYROXINE 125 MCG TAB PO SCH (10:49)
[2018-07-18] MEDS: ENOXAPARIN 40 MG/0.4 ML SYR SC SCH (10:50)
[2018-07-18] MEDS: [UNRECOGNIZED DRUG - OTHER] PO SCH ×2 (10:50→21:23)
[2018-07-18] MEDS: SENNOSIDES/DOCUSATE SODIUM TAB PO SCH ×2 (10:51→21:23)
--- NOTE | 2018-07-18 16:15 | HOSPPROG ---
Hospitalist Progress Note Assessment/Plan: 63 year old female with pmh of spinal cord injury admitted with UTI and increased lower extremity weakness. Lower extremity weakness- MRI results reviewed. Case discussed with neurosurgery who feels that imaging not suggestive of any new acute injury or change to explain symptoms and on indication for acute intervention. Case also discussed with senior manager mergers & acquisitions neurology who feels that patient has a history of cord injury and that possible cause of new weakness in patient with hx of cord injury would be UTI. He recommends treating possible underlying UTI, ordering PT /OT and hydrating patient. if no improvement and worsening weakness or new symptoms re consult neurology for review. -treat underlying UTI -PT/OT -hydrate. -Monitor neuro status UTI- Urine with LE, given rocephin in ER. will continue rocephin IV while in house Chronic pain- patient with chronic generalized pain, takes 45 mg ms contin TID, baclofen, dantrolene, and oxycodone 25 5x daily. Will continue home dose of ms contin, and provide PRN oxycodone along with home dose of baclofen and dantrolene. type 2 DM- on metformin bid. Hold and cover with SSI while here. HTN- takes lisinopril and norvasc. continue here. Hypothyroid- cont home dose PPX- SCDs, lovenoc Fluids- NS Lytes- WNL Nutrition- regular diet Cor- DNR Dispo- inpatient, to SNF Thursday as they wont accept on weekends. alternatively patient could go home if strong enough to go home after PT/OT over the weekend Subjective: patient feels stronger today, eating well, no complaints. Objective: Vital Signs Temp Pulse Resp BP Pulse Ox 36.8 C 63 17 103/79 91 L 07/18/18 15:37 07/18/18 15:37 07/18/18 15:37 07/18/18 15:37 07/18/18 15:37 07/17/18 07/18/18 07/19/18 05:59 05:59 05:59 Intake Total 250 Output Total 1900 Balance -1650 - Physical Exam Constitutional: no apparent distress, appears nourished, not in pain Eyes: PERRL, anicteric sclera, EOMI Ears, Nose, Mouth, Throat: moist mucous membranes, hearing normal, ears appear normal, no oral mucosal ulcers Cardiovascular: regular rate and rhythym, no murmur, rub, or gallop Respiratory: no respiratory distress, no rales or rhonchi, clear to auscultation Gastrointestinal: normoactive bowel sounds, soft, non-tender abdomen, no palpable masses Genitourinary: no bladder fullness, no bladder tenderness, no renal bruits Skin: no rashes or abrasions, no fluctuance, no induration Musculoskeletal: full muscle strength, no muscle tenderness, normal joint ROM Neurologic: AAOx3, sensation intact bilaterally Psychiatric: interacting appropriately, not anxious, not encephalopathic, thought process linear Lymph, Heme, Immunologic: no cervical LAD, no supraclavicular LAD ICD10 Worksheet Patient Problems: Problems Problem Status Onset Lower extremity weakness Acute Post-traumatic syrinx Acute UTI (urinary tract infection) Acute Abnormal EKG Acute Weakness Acute Wound infection Acute
[2018-07-19] MEDS: oxyCODONE IR 5 MG TAB PO PRN ×5 (03:16→23:12)
[2018-07-19] MEDS: BACLOFEN 20 MG TAB PO SCH ×5 (05:13→21:47)
[2018-07-19] MEDS: morphINE SR 15 MG TAB PO SCH ×3 (05:13→21:47)
[2018-07-19] MEDS: morphINE SR 30 MG TAB PO SCH ×3 (05:13→21:47)
[2018-07-19] MEDS: INSULIN LISPRO 100 UNIT/ML SC SCH ×3 (08:02→18:45)
[2018-07-19] MEDS: amLODIPine BESYLATE 5 MG TAB PO SCH (09:31)
[2018-07-19] MEDS: [UNRECOGNIZED DRUG - OTHER] PO SCH ×2 (09:31→21:47)
[2018-07-19] MEDS: FUROSEMIDE 20 MG TAB PO SCH (09:31)
[2018-07-19] MEDS: ENOXAPARIN 40 MG/0.4 ML SYR SC SCH (09:31)
[2018-07-19] MEDS: LEVOTHYROXINE 137 MCG TAB PO SCH (09:32)
[2018-07-19] MEDS: SENNOSIDES/DOCUSATE SODIUM TAB PO SCH ×2 (09:32→21:47)
[2018-07-19] MEDS: LISINOPRIL 5 MG TAB PO SCH (09:32)
--- NOTE | 2018-07-19 14:52 | HOSPPROG ---
Hospitalist Progress Note Assessment/Plan: 63 year old female with pmh of spinal cord injury admitted with UTI and increased lower extremity weakness. First encounter, chart reviewed. #Lower extremity weakness- - MRI results reviewed - per neurosurgery who feels that imaging not suggestive of any new acute injury or change to explain symptoms - PT/OT -treat underlying UTI -hydrate. -Monitor neuro status -doing better #UTI- -Urine with LE and contaminate -rocephin in ER -will continue rocephin IV while in house #Chronic pain- -patient with chronic generalized pain -takes 45 mg ms contin TID -baclofen, dantrolene, and oxycodone 25 5x daily -Will continue home dose of ms contin -provide PRN oxycodone along with home dose of baclofen and dantrolene. #type 2 DM- -on metformin bid -Hold and cover with SSI while here #BLE stasis -less swelling -cont aggressive care -wound care #HTN- -takes lisinopril and norvasc. continue here. #Hypothyroid- -cont home dose PPX- SCDs, lovenox Fluids- NS Lytes- WNL Nutrition- regular diet Cor- DNR Dispo- inpatient, to SNF vs rehab in am D/W CM Subjective: Up in chair. Feeling better. Still weak. Objective: Vital Signs Temp Pulse Resp BP Pulse Ox 37.0 C 70 12 119/60 93 07/19/18 12:00 07/19/18 12:00 07/19/18 12:00 07/19/18 12:00 07/19/18 12:00 07/18/18 07/19/18 07/20/18 05:59 05:59 05:59 Intake Total 250 740 Output Total 1900 Balance -1650 740 - Physical Exam Constitutional: appears nourished, chronically ill appearing, obese Eyes: PERRL, anicteric sclera, EOMI Ears, Nose, Mouth, Throat: moist mucous membranes, hearing normal, ears appear normal Cardiovascular: regular rate and rhythym, edema, No JVD, No tachycardia Respiratory: no respiratory distress, no rales or rhonchi, reduced air movement Gastrointestinal: normoactive bowel sounds, No tenderness, No ascites Skin: warm, rash, No mottled Musculoskeletal: muscular tenderness, abnormal gait, generalized weakness Neurologic: AAOx3 Psychiatric: interacting appropriately, not anxious, not encephalopathic, thought process linear ICD10 Worksheet Patient Problems: Problems Problem Status Onset Wound infection Acute Weakness Acute Abnormal EKG Acute Lower extremity weakness Acute UTI (urinary tract infection) Acute Post-traumatic syrinx Acute
--- NOTE | 2018-07-19 15:30 | WOCRNPDOC ---
WOCRN Advanced Assessment Note - Skin Integrity Problem, Advanced Assess Bilateral Lower Leg Dressing Type: Open to Air Exudate Amount: Scant Exudate Color: Reddish/Yellow Exudate Characteristic(s): Dried Integumentary Issue Intervention: Lotion/Cream Applied Alem Wound Tissue: Erythema, Swollen, Scaly Alem Wound Swelling: Moderate Wound Bed Color: Red Wound Bed Constitution: Red/[place] - Non Granular Tissue Site Measurement - Head-to-Toe Length X Width X Depth (cm): 0.2x0.2x0.1 Pulse Location & Description: 2+bilateral pedal pulses Skin Integrity Problem Comment: Patient has erythema bilateral to both lower legs, extending from anterior aspect below the knees to just above malleolus, with only the posterior portion of both legs without erythema. IZA Mata reports patient having dried skin that was removed in shower. Patient has one small partial thickness wound on her right fuentes. No other wounds present. The upper margins of both legs have a pinprick appearance, similar to tinea infections. The lower margins of both legs are well defined. The patient reports having a spinal injury, and that her left leg swells more than her right. The patient reports that she has not had any weeping edema, or any ulcers.
[2018-07-20] MEDS: oxyCODONE IR 5 MG TAB PO PRN ×3 (03:06→19:56)
[2018-07-20] MEDS: morphINE SR 15 MG TAB PO SCH ×3 (05:01→20:57)
[2018-07-20] MEDS: BACLOFEN 20 MG TAB PO SCH ×5 (05:01→19:56)
[2018-07-20] MEDS: morphINE SR 30 MG TAB PO SCH ×3 (05:01→20:56)
[2018-07-20] MEDS: INSULIN LISPRO 100 UNIT/ML SC SCH ×3 (07:57→18:45)
--- NOTE | 2018-07-20 08:39 | HOSPPROG ---
Hospitalist Progress Note Assessment/Plan: 63 year old female with pmh of spinal cord injury admitted with UTI and increased lower extremity weakness. First encounter, chart reviewed. #Lower extremity weakness - per nursing staff she is much improved, patient said she is much stronger - MRI results reviewed - neurosurgery notes imaging not suggestive of any new acute injury or change to explain symptoms - PT/OT - treat underlying UTI #UTI- -Rocephin in ER - will continue Rocephin IV while in house, she is much improved - cx shows gram - roberto lactose window covering sales consultant + multi colony #Chronic pain- -patient with chronic generalized pain -takes 45 mg ms Contin TID -baclofen, dantrolene, and oxycodone 25 5x daily -continue home dose of ms Contin -provide PRN oxycodone along with home dose of baclofen and dantrolene. #type 2 DM- -on metformin bid (on hold while in hospital) - cover with SSI while here #obesity w a BMI of 39 #BLE stasis -less swelling, Norvasc could be contributing to this -Ale said this is much improved #Ichthyosis vulgaris -chronic condition-per patient it is better with the care here -she has seen a lockstitch tunnel elastic operator in the past for this #HTN -lisinopril and Norvasc -bp stable #Hypothyroid -cont home med #plan: asked CM to give her SNF information Subjective: Ale is feeling much better today, strength is starting to come back. Objective: Vital Signs Temp Pulse Resp BP Pulse Ox 36.7 C 59 L 14 113/64 95 07/20/18 07:37 07/20/18 07:37 07/20/18 07:37 07/20/18 07:37 07/20/18 07:37 07/19/18 07/20/18 07/21/18 05:59 05:59 05:59 Intake Total 740 1300 Balance 740 1300 - Physical Exam Constitutional: appears nourished, not in pain, chronically ill appearing, obese Eyes: PERRL Ears, Nose, Mouth, Throat: hearing normal Cardiovascular: regular rate and rhythym, no murmur, rub, or gallop Respiratory: no respiratory distress, reduced air movement Gastrointestinal: normoactive bowel sounds Skin: warm, other (bilateral lower extremities with thick, scaley, dry, red skin ) Neurologic: AAOx3 Psychiatric: interacting appropriately, not anxious ICD10 Worksheet Patient Problems: Problems Problem Status Onset Lower extremity weakness Acute Post-traumatic syrinx Acute UTI (urinary tract infection) Acute Abnormal EKG Acute Weakness Acute Wound infection Acute
[2018-07-20] MEDS: LEVOTHYROXINE 125 MCG TAB PO SCH (10:25)
[2018-07-20] MEDS: SENNOSIDES/DOCUSATE SODIUM TAB PO SCH ×2 (10:25→23:45)
[2018-07-20] MEDS: LISINOPRIL 5 MG TAB PO SCH (10:26)
[2018-07-20] MEDS: amLODIPine BESYLATE 5 MG TAB PO SCH (10:26)
[2018-07-20] MEDS: ENOXAPARIN 40 MG/0.4 ML SYR SC SCH (10:26)
[2018-07-20] MEDS: FUROSEMIDE 20 MG TAB PO SCH (10:26)
[2018-07-20] MEDS: [UNRECOGNIZED DRUG - OTHER] PO SCH ×2 (10:26→20:57)
[2018-07-21] MEDS: oxyCODONE IR 5 MG TAB PO PRN ×3 (01:31→12:38)
[2018-07-21] MEDS: morphINE SR 30 MG TAB PO SCH ×2 (04:47→12:39)
[2018-07-21] MEDS: morphINE SR 15 MG TAB PO SCH ×2 (04:47→12:39)
[2018-07-21] MEDS: BACLOFEN 20 MG TAB PO SCH ×3 (04:47→12:38)
[2018-07-21 07:26] VITALS: BP 110/60
[2018-07-21] MEDS: LEVOTHYROXINE 137 MCG TAB PO SCH (08:37)
[2018-07-21] MEDS: ENOXAPARIN 40 MG/0.4 ML SYR SC SCH (08:38)
[2018-07-21] MEDS: [UNRECOGNIZED DRUG - OTHER] PO SCH (09:46)
[2018-07-21] MEDS: FUROSEMIDE 20 MG TAB PO SCH (09:46)
[2018-07-21] MEDS: LISINOPRIL 5 MG TAB PO SCH (09:46)
[2018-07-21] MEDS: amLODIPine BESYLATE 5 MG TAB PO SCH (09:48)
--- NOTE | 2018-07-21 10:35 | ASMTLACE ---
LACE Length of stay for Answers: 3 days current admission Acuity / Level of Answers: Yes Care: Did the patient have an inpatient admission? Comorbidities - select Answers: Diabetes (uncontrolled or all that apply controlled) Opioid dependence / Chronic pain Other Notes: Calvert's palsy # of Emergency department Answers: 1-2 visits in the last 6 months Score: 13 Date Signed: 07/21/2018 09:54 AM Electronically Signed By:OUSMANE Mendez
[2018-07-21] MEDS ORDERED: EUCERIN/HYDROCERIN CREAM 120GM JAR TP PRN (11:28)
--- NOTE | 2018-07-21 11:32 | HOSPPROG ---
Hospitalist Progress Note Assessment/Plan: 63 year old female with pmh of spinal cord injury admitted with UTI and increased lower extremity weakness. #Lower extremity weakness - much improved w treating UTI - neurosurgery notes imaging not suggestive of any new acute injury or change to explain symptoms - PT/OT - #UTI- -treated w Rocephin - cx shows gram - roberto lactose financial services consultant + multi colony #Chronic pain- -patient with chronic generalized pain -takes 45 mg ms Contin TID -baclofen, dantrolene, and oxycodone 25 5x daily -continue home dose of ms Contin -provide PRN oxycodone along with home dose of baclofen and dantrolene. #type 2 DM- -on metformin bid (on hold while in hospital) - cover with SSI while here #obesity w a BMI of 39 #BLE stasis -less swelling, Norvasc could be contributing to this -Ale said this is much improved #Ichthyosis vulgaris -chronic condition-per patient it is better with the care here -she has seen a chief security officer in the past for this -trial of Eucerin #HTN -lisinopril and Norvasc -bp stable #Hypothyroid -cont home med #plan: dc to [facility] Subjective: Ale is feeling much better today. Objective: Vital Signs Temp Pulse Resp BP Pulse Ox 36.7 C 66 16 110/60 95 07/21/18 07:23 07/21/18 07:23 07/21/18 07:23 07/21/18 07:23 07/21/18 07:23 07/20/18 07/21/18 07/22/18 05:59 05:59 05:59 Intake Total 1300 850 400 Balance 1300 850 400 - Physical Exam Constitutional: no apparent distress, not in pain, obese Eyes: PERRL Ears, Nose, Mouth, Throat: hearing normal Respiratory: no respiratory distress Skin: warm, other (bilateral lower ext w red scaley skin) Neurologic: AAOx3 Psychiatric: interacting appropriately ICD10 Worksheet Patient Problems: Problems Problem Status Onset Lower extremity weakness Acute Post-traumatic syrinx Acute UTI (urinary tract infection) Acute Abnormal EKG Acute Weakness Acute Wound infection Acute
--- NOTE | 2018-07-21 11:37 | PDIAF ---
- Diagnosis Diagnosis: weakness, hx of spinal cord injury, uti, diabetes Code Status: Do Not Resuscitate - Medication Management Discharge Medications: electronically signed and located in the Home Medication List. - Orders Services needed: Physical Therapy, Occupational Therapy Diet Recommendation: ADA 2000 consistent carb Diet Texture: Regular Texture Diet Additional Instructions: follow up w a classification case manager to get more aggressive treatment for your ichthyosis return to the ER if you develop fever, chills use an incentive spirometer several times a day to help with deep breathing - Follow Up Care Current Providers and Referrals: Ewelina Swanson MD [Primary Care Provider] - As per Instructions
[2018-07-21] MEDS: INSULIN LISPRO 100 UNIT/ML SC SCH (12:22)
[2018-07-21] MEDS: SENNOSIDES/DOCUSATE SODIUM TAB PO SCH (12:39)
--- NOTE | 2018-07-21 12:42 | ASMTDCNOTE ---
Case Management Discharge Discharge Order Complete? Answers: Yes Patient to Obtain Answers: Other Notes: [facility] arranged Medications [place] Transportation Arranged Answers: Other Notes: [facility] arranged transport. Agency/Facility Transfer Answers: Yes Report Printed & Faxed to Receiving Agency Family Notified Answers: Yes Discharge Comments Notes: CM spoke with inpatient rehab and unable to accept. CM discussed with MD and pt appropriate for SNF. CM Submit referral to [facility], per pt request. [facility] accepted pt and arranged transportation. CM answered questions and concerns for pt, no other needs identified. Date Signed: 07/21/2018 12:42 PM Electronically Signed By:OUSMANE Mendez
--- NOTE | 2018-07-21 13:14 | GDS ---
DISCHARGE DIAGNOSES: 1. Lower extremity weakness. 2. Urinary tract infection. 3. Chronic pain, on chronic continuous opioids. 4. Type 2 diabetes. 5. Obesity with a body mass index of 39. 6. Bilateral extremity stasis with swelling. 7. Ichthyosis vulgaris. 8. Hypertension. 9. Hypothyroidism. CONSULTATIONS: 1. Dr. Lacy with Neurosurgery. 2. Howard Charles with Neurology. HISTORY OF PRESENT ILLNESS: The patient is a 63-year-old woman with a past medical history of spinal cord injury in the late 80s, with subsequent chronic weakness, diabetes, hypertension, and chronic pain. She presented to the emergency room with complaints of increased weakness over the last 10 days. She had upper extremity weakness at base, and this is unchanged, but she feels like she has progressively had more difficulty with walking. She was seen and evaluated by Neurosurgery. He reviewed her MRI, which showed no concerning stenosis. He noted that she has a post-traumatic syrinx, which is very small, and he does not believe this is contributing to her current complaints. Subsequently, she has followed up with Neurology, who thought that her urinary tract infection and dehydration were likely causing her decompensation. She was treated with IV antibiotics. Today, she feels she is back close to her baseline. She will go to [facility] for strengthening. HOSPITAL COURSE: 1. Lower extremity weakness. This is much improved with treating her urinary tract infection. 2. Urinary tract infection, treated with Rocephin. Her culture showed roberto lactose flare maker plus multi-colony organisms. She improved with treatment. 3. Chronic pain. Resumed her home medication. 4. Type 2 diabetes, on metformin. This was resumed. Placed her on an ADA diet. 5. Obesity. She has a BMI of 39. 6. Bilateral extremity stasis, much improved. 7. Ichthyosis vulgaris. This is a chronic condition. I have recommended that she see a manhole builder to get further evaluation and treatment. 8. Hypertension, on lisinopril and Norvasc. 9. Hypothyroidism, on Synthroid. DISCHARGE CONDITION: Stable. Blood pressure is 110/60, heart rate of 66, respiratory rate of 16, O2 sats on room air 95%. Temperature is 36.7 Celsius. DISCHARGE MEDICATIONS: Please see the EMR. DISCHARGE INSTRUCTIONS: 1. Recommend she follow up with a manhole builder to get more aggressive treatment for her ichthyosis. 2. Return to the ER if she develops fever or chills. Greater than 30 minutes discharging and coordinating the patient's care. /[id number]/MODL MTDD
--- NOTE | 2018-07-21 13:21 | ASDISCHSUM ---
Discharge Information Plan Status:SNF Medically Cleared to Leave:07/20/2018 Discharge Date:07/21/2018 01:17 PM CM D/C Disposition:[facility] Facility ADT D/C Disposition:Prison Facility Projected Discharge Date:07/21/2018 11:00 AM Transportation at D/C:Wheelchair Van Discharge Delay Reason: Follow-Up Date:07/21/2018 11:00 AM Discharge Slot: Final Diagnosis: Placement Information Referral Type:*Group Home/SNF Referral ID:[id number] Provider Name:[facility] Address 1:[address] Address 2: City:[place] Selection Factors: State:[place] Patient Contact Information Contact Name:CHANG Relationship: Address:[address] Work Phone: [facility]:[place] Alternate Phone: State/Zip Code:[place] [address] Email: Financial Information Financial Class:Medicare Advantage Plans Primary Plan Desc:[facility] [facility] [employer] PLANS Primary Plan Number:[id number] Secondary Plan Desc: Secondary Plan Number: Assessment Information [facility] CM Progress Note CM Note CM Note Notes: Chart review completed and spoke with the pt's hospitalist. Per chart pt lives with spouse. Pt admitted for UTI and increased lower extremity weakness in the setting of an old spinal cord injury. PT is recommending inpatient rehab and provider placed order for eval which cannot happen until Thursday. [facility] IP Rehab notified via phone. CM to follow. D/C Plan : [facility] Rehab pending eval on Thursday Date Signed: 07/17/2018 06:17 PM Electronically Signed By:Laly Teresa LACE DIVINE Length of stay for Answers: 3 days current admission Acuity / Level of Answers: Yes Care: Did the patient have an inpatient admission? Comorbidities - select Answers: Diabetes (uncontrolled or all that apply controlled) Opioid dependence / Chronic pain Other Notes: Calvert's palsy # of Emergency department Answers: 1-2 visits in the last 6 months Score: 13 Date Signed: 07/21/2018 09:54 AM Electronically Signed By:OUSMANE Mendez Case Management Discharge Plan Note Case Management Discharge Discharge Order Complete? Answers: Yes Patient to Obtain Answers: Other Notes: [facility] arranged Medications [place] Transportation Arranged Answers: Other Notes: [facility] arranged transport. Agency/Facility Transfer Answers: Yes Report Printed & Faxed to Receiving Agency Family Notified Answers: Yes Discharge Comments Notes: CM spoke with inpatient rehab and unable to accept. CM discussed with MD and pt appropriate for SNF. CM Submit referral to [facility], per pt request. [facility] accepted pt and arranged transportation. CM answered questions and concerns for pt, no other needs identified. Date Signed: 07/21/2018 12:42 PM Electronically Signed By:OUSMANE Mendez Intervention Information
== END 2018-07-21 13:17 | DRG 690 ==
LOC: EDUNIT# → INTOOBSV 11:38 → F3N 15:11 → OBSVTOIN 07-17 11:51
PROVIDERS: ADMIT Hospitalist; ATTEND Internal Medicine
DX: N39.0 Urinary tract infection, site not specified (principal); G95.0 Syringomyelia and syringobulbia; E86.0 Dehydration; Q80.0 Ichthyosis vulgaris; E11.9 Type 2 diabetes mellitus without complications; I10 Essential (primary) hypertension; G89.29 Other chronic pain; E66.9 Obesity, unspecified; I87.8 Other specified disorders of veins; E03.9 Hypothyroidism, unspecified; Z68.39 Body mass index [BMI] 39.0-39.9, adult; Z66 Do not resuscitate; Z79.84 Long term (current) use of oral hypoglycemic drugs
CPT/HCPCS: 82435-PO; 82565-PO; 82947-PO; 84132-PO; 84295-PO; 84520-PO; 85014-PO; 96365; 97110-GP; 97116-GP; 97162-GP; 97165-GO; 97530-GO; 97530-GP; 97535-GO; G0378; G8978-GP-CL; G8979-GP-CJ; G8987-GO-CJ; G8987-GO-CL; G8988-GO-CI; G8989-GO-CJ; J0696; J1650; J1815

== ENCOUNTER 2018-09-02 16:03 | Inpatient (IN) | payer OTHER ==
[2018-09-02] MEDS ORDERED: HYDROmorphONE/DILAUDID 2 MG/ML INJ IVP ONE ×2 (16:10→18:00)
[2018-09-02] MEDS ORDERED: NS 1,000 ML IV ONE (16:10)
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
[2018-09-02] MEDS ORDERED: HYDROmorphONE/DILAUDID 2 MG/ML INJ ONE (17:59)
[2018-09-02] MEDS ORDERED: ONDANSETRON DISINTEGRATING 4 MG TAB PO PRN (18:15)
[2018-09-02] MEDS ORDERED: ACETAMINOPHEN 325 MG TAB PO PRN (18:15)
[2018-09-02] MEDS ORDERED: ONDANSETRON 4 MG/2 ML VIAL IVP PRN (18:15)
[2018-09-02] MEDS ORDERED: HYDROmorphONE/DILAUDID 1 MG/ML INJ IVP PRN (18:15)
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
[2018-09-02] MEDS ORDERED: D50W 25 GM/50 ML SYR IVP PRN (18:22)
[2018-09-02] MEDS ORDERED: MAGNESIUM HYDROXIDE 30 ML UDCUP PO PRN (18:31)
[2018-09-02] MEDS ORDERED: BISACODYL 10 MG SUPP PR PRN (18:31)
[2018-09-02] MEDS ORDERED: LACTULOSE 20 GM/30 ML UDCUP PO PRN (18:31)
[2018-09-02] MEDS ORDERED: POLYETHYLENE GLYCOL 3350 17 GM PKT PO PRN (18:31)
[2018-09-02] MEDS ORDERED: valACYclovir 500 MG TAB PO PRN (18:45)
[2018-09-02] MEDS ORDERED: COLLOIDAL OATMEAL TP PRN (18:45)
[2018-09-02 19:33] LABS: PLATELET COUNT 220 10^3/uL (150-400)
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
[2018-09-02 19:51] LABS: INR 0.91 (0.83-1.16); PROTIME(PATIENT) 12.5 SEC (12.0-15.0)
[2018-09-02] MEDS: oxyCODONE IR 5 MG TAB PO PRN ×2 (20:07→23:15)
[2018-09-02] MEDS: morphINE SR 15 MG TAB PO SCH (21:03)
[2018-09-02] MEDS: BACLOFEN 20 MG TAB PO SCH (21:03)
[2018-09-02] MEDS: morphINE SR 30 MG TAB PO SCH (21:04)
[2018-09-02] MEDS: SENNOSIDES/DOCUSATE SODIUM TAB PO SCH (21:04)
[2018-09-02] MEDS: [UNRECOGNIZED DRUG - OTHER] PO SCH (21:05)
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
[2018-09-02] MEDS: HYDROmorphONE/DILAUDID 2 MG/ML INJ IVP PRN (22:09)
[2018-09-03] MEDS: oxyCODONE IR 5 MG TAB PO PRN ×6 (02:34→22:18)
[2018-09-03] MEDS: morphINE SR 15 MG TAB PO SCH ×3 (04:56→20:29)
[2018-09-03] MEDS: morphINE SR 30 MG TAB PO SCH ×3 (04:56→20:29)
[2018-09-03] MEDS: BACLOFEN 20 MG TAB PO SCH ×5 (04:56→20:29)
[2018-09-03] MEDS: LEVOTHYROXINE 125 MCG TAB PO SCH (05:56)
[2018-09-03] MEDS: INSULIN LISPRO 100 UNIT/ML SC SCH ×3 (08:16→17:59)
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
[2018-09-03] MEDS: HYDROmorphONE/DILAUDID 2 MG/ML INJ IVP PRN (09:01)
[2018-09-03] MEDS: FUROSEMIDE 20 MG TAB PO SCH (09:05)
[2018-09-03] MEDS: amLODIPine BESYLATE 5 MG TAB PO SCH (09:05)
[2018-09-03] MEDS: LISINOPRIL 5 MG TAB PO SCH (09:06)
[2018-09-03] MEDS: SENNOSIDES/DOCUSATE SODIUM TAB PO SCH ×2 (10:27→20:29)
[2018-09-03] MEDS: LUBIPROSTONE 24 MCG CAP PO SCH (10:30)
--- NOTE | 2018-09-03 12:26 | SOAPPROG ---
SOAP Progress Note Assessment/Plan: a/p 63 yo f w/ left distal humerus fx, hx old c2 incomplete injiry w/ generalized weakness, doing well, currently no issues, scheduled for surgery tomorrow morning w/ dr ma. -plan for ORIF distal humerus thursday (09/04/18) by dr. ma -consent for left distal humerus orif/olecranon osteotomy, ulnar nerve release -npo @ midnight -pain meds returned to her "at home baseline," but will also add on 1 mg dilaudid IVP for breakthrough Subjective: annabelle is a very pleasant 63 yo female, denies any issues currently, pain is well controlled, ready for her left humerus fracture surgery scheduled for tomorrow thursday AM w/ dr. ma. denies any numbness/tingling/cp/sob/n/v, fevers or chills. voiding freely, constipated at baseline. Objective: LUE: splint c/d/i, signed on splint and left deltoid, groslly nvid w/ digital movement wnl and brisk cap refill Vital Signs Temp Pulse Resp BP Pulse Ox 36.8 C 75 18 124/55 H 90 L 09/03/18 07:41 09/03/18 07:41 09/03/18 07:41 09/03/18 09:06 09/03/18 07:41 Laboratory Results 09/02/18 19:22 09/02/18 19:22 09/02/18 09/03/18 09/04/18 05:59 05:59 05:59 Intake Total 1900 Output Total 1450 Balance 450 PT 12.5 SEC (12.0-15.0) 09/02/18 19:22 INR 0.91 (0.83-1.16) 09/02/18 19:22 ICD10 Worksheet Patient Problems: Problems Problem Status Onset Humerus distal fracture Acute Abnormal EKG Acute Lower extremity weakness Acute Post-traumatic syrinx Acute UTI (urinary tract infection) Acute Weakness Acute Wound infection Acute
[2018-09-03] MEDS: [UNRECOGNIZED DRUG - OTHER] PO SCH ×2 (12:43→22:17)
--- NOTE | 2018-09-03 13:37 | HOSPPROG ---
Hospitalist Progress Note Assessment/Plan: 63 yo F with PMH of spinal cord injury in the 80s with resultant chronic weakness. She fell at home and sustained a distal humeral fracture. First encounter, chart reviewed. 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 Objective: Vital Signs Temp Pulse Resp BP Pulse Ox 36.8 C 75 18 124/55 H 90 L 09/03/18 07:41 09/03/18 07:41 09/03/18 07:41 09/03/18 09:06 09/03/18 07:41 Laboratory Results 09/02/18 19:22 09/02/18 19:22 09/02/18 09/03/18 09/04/18 05:59 05:59 05:59 Intake Total 1900 Output Total 1450 Balance 450 PT 12.5 SEC (12.0-15.0) 09/02/18 19:22 INR 0.91 (0.83-1.16) 09/02/18 19:22 - Physical Exam Constitutional: no apparent distress, appears nourished, not in pain, chronically ill appearing Eyes: PERRL Ears, Nose, Mouth, Throat: hearing normal Cardiovascular: regular rate and rhythym Respiratory: no respiratory distress Skin: warm, other (bilateral lower ext venous stasis w thickened discolored skin ) Neurologic: AAOx3 Psychiatric: interacting appropriately ICD10 Worksheet Patient Problems: Problems Problem Status Onset Humerus distal fracture Acute Abnormal EKG Acute Lower extremity weakness Acute Post-traumatic syrinx Acute UTI (urinary tract infection) Acute Weakness Acute Wound infection Acute
--- NOTE | 2018-09-03 15:08 | ASMTCMCOM ---
CM Note CM Note Notes: Met with pt, she is admitted to hospital for a broken arm after slipping off her bed. Her situation is complicated by a hx of C1 injury which has resulted in parasthesia/weakness but with full sensation. PT/OT recommend SNF, pt was recently at [facility] and would like to go back. Pt lives at home with her and son. DC Plan: SNF Date Signed: 09/03/2018 03:08 PM Electronically Signed By:Lilia Marsh RN
[2018-09-04] MEDS: oxyCODONE IR 5 MG TAB PO PRN ×4 (03:03→21:54)
[2018-09-04] MEDS: morphINE SR 15 MG TAB PO SCH ×3 (04:54→21:00)
[2018-09-04] MEDS: morphINE SR 30 MG TAB PO SCH ×3 (04:54→21:00)
[2018-09-04] MEDS: BACLOFEN 20 MG TAB PO SCH ×5 (04:54→21:00)
[2018-09-04] MEDS: LEVOTHYROXINE 137 MCG TAB PO SCH (05:52)
[2018-09-04] MEDS ORDERED: CEFAZOLIN 2 GM/DEXTROSE/100 ML BAG IV ONE (07:39)
[2018-09-04] MEDS ORDERED: ceFAZolin 2 GM/DEXTROSE 100 ML IV ONE (07:45)
[2018-09-04] MEDS ORDERED: MIDAZOLAM 2 MG/2 ML VIAL IVP ONE (07:50)
--- NOTE | 2018-09-04 07:50 | PDANEPAE ---
ANE History of Present Illness ORIF L Elbow ANE Past Medical History - Pulmonary History Hx Oxygen in Use at Home: Yes O2 in Use at Home (L/minute): 3 Hx Sleep Apnea: Yes Sleep Apnea Screening Result - Last Documented: Positive - Neurologic History Neurologic History Comment: Hx of partial C3 injury with weakness for 30 years. Hx PTSD - Endocrine History Hx Diabetes: Yes Hypothyroid: Yes - Chronic Pain History Chronic Pain: Yes ANE Review of Systems Review of Systems: - Exercise capacity Exercise capacity: limited by disability ANE Patient History - Allergies Allergies/Adverse Reactions: bacitracin [From Neosporin] Allergy (Intermediate, Verified 09/20/16 15:52) Rash bacitracin zinc [From Neosporin] Allergy (Intermediate, Verified 09/20/16 15:52) Rash gramicidin D [From Neosporin] Allergy (Intermediate, Verified 09/20/16 15:52) Rash neomycin sulfate [From Neosporin] Allergy (Intermediate, Verified 09/20/16 15:52 ) Rash polymyxin B [From Neosporin] Allergy (Intermediate, Verified 09/20/16 15:52) Rash polymyxin B sulfate [From Neosporin] Allergy (Intermediate, Verified 09/20/16 15 :52) Rash fluoroquinalones Allergy (Severe, Uncoded 09/20/16 15:52) muscle spasms - Home Medications Home medications: home medication list seen and reviewed Home Medications: Baclofen [Baclofen 20 mg (*)] 20 mg PO 05,,,,09/20/16 [Last Taken 09/02 13:00] Dantrolene Sodium [Dantrium 25 mg (*)] 25 mg PO BID@09/20/16 [Last Taken 09/02/18 10:00] Levothyroxine [Synthroid 125 mcg (*)] 125 mcg PO TUFR@09/20/16 [Last Taken ] Levothyroxine [Synthroid 137 mcg (*)] 137 mcg PO SUMOWETHSA@09/20/16 [Last Taken 09/02/18] Lubiprostone [Amitiza 24 mcg (*)] 24 mcg PO DAILY10 09/20/16 [Last Taken ] Morphine Sulfate 30 mg PO TID@,,09/20/16 [Last Taken 09/02/18 13:00] Morphine Sulfate [Ms Contin] 15 mg PO TID@05,13,21 09/20/16 [Last Taken 13:00] metFORMIN HCL [Glucophage 500 mg (*)] 500 mg PO BIDMEAL 09/20/16 [Last Taken 08:00] valACYclovir [Valtrex (*)] 500 mg PO Q12HRS PRN 09/20/16 [Last Taken Unknown] Furosemide [Lasix 20 MG (*)] 20 mg PO DAILY10 07/16/18 [Last Taken 09/02/18] Lisinopril [Zestril 5 mg (*)] 5 mg PO DAILY 07/16/18 [Last Taken 09/02/18] amLODIPine BESYLATE [Norvasc 5 mg (*)] 5 mg PO DAILY 07/16/18 [Last Taken ] Colloidal Oatmeal [Eucerin Eczema Relief] 226 gm TP BID PRN 09/02/18 [Last Taken Unknown] Sennosides/Docusate Sodium [Senokot-S] 1 - 2 tab PO BID PRN 09/02/18 [Last Taken Unknown] - NPO status NPO Status: no food or drink >8 hours NPO Since - Liquids (Date): 09/04/18 NPO Since - Liquids (Time): 00:01 NPO Since - Solids (Date): 09/03/18 NPO Since - Solids (Time): 20:00 - Anes Hx Anes Hx: no prior problems - Smoking Hx Smoking Status: Never smoked - Alcohol Use Alcohol Use: None - Family Anes Hx Family Anes Hx: none ANE Labs/Vital Signs - Labs Result Diagrams: 09/04/18 06:16 09/04/18 06:16 - Labs - BMP Glucose: 98 this AM, no insulin since last night - Vital Signs Blood Pressure: 123/71 Heart Rate: 62 Respiratory Rate: 16 O2 Sat (%): 96 Height: 160.02 cm Weight: 99.11 kg ANE Physical Exam - Airway Neck exam: FROM Mallampati Score: Class 2 Mouth exam: normal dental/mouth exam - Pulmonary Pulmonary: no respiratory distress - Cardiovascular Cardiovascular: regular rate and rhythym - ASA Status ASA Status: III ANE Anesthesia Plan Anesthesia Plan: general endotracheal anesthesia
[2018-09-04] MEDS ORDERED: ROPIVACAINE HCL 20 MG/10 ML INJ EP ONE ×2 (08:00→09:32)
[2018-09-04] MEDS ORDERED: MIDAZOLAM 2 MG/2 ML VIAL ONE (08:07)
[2018-09-04] MEDS ORDERED: REMIFENTANIL HCL 1 MG VIAL ONE ×2 (08:13→10:25)
[2018-09-04] MEDS ORDERED: fentaNYL 100 MCG/2 ML INJ ONE (08:13)
[2018-09-04] MEDS ORDERED: PROPOFOL/EMULSION 500 MG/50 ML BOTTLE IV ONE ×2 (08:13→10:25)
[2018-09-04] MEDS ORDERED: LIDOCAINE 2% 100 MG/5 ML SYR ONE (08:16)
[2018-09-04] MEDS ORDERED: DEXAMETHASONE 4 MG/ML VIAL ONE ×2 (09:18)
[2018-09-04] MEDS: amLODIPine BESYLATE 5 MG TAB PO SCH (10:07)
[2018-09-04] MEDS: LISINOPRIL 5 MG TAB PO SCH (10:07)
[2018-09-04] MEDS: INSULIN LISPRO 100 UNIT/ML SC SCH ×3 (10:07→19:13)
[2018-09-04] MEDS: SENNOSIDES/DOCUSATE SODIUM TAB PO SCH ×2 (10:08→21:00)
[2018-09-04] MEDS ORDERED: ceFAZolin 1 GM VIAL ONE ×2 (11:00)
[2018-09-04] MEDS ORDERED: HYDROGEN PEROXIDE 236 ML BOTTLE TP ONE (11:11)
[2018-09-04] MEDS ORDERED: HYDROCODONE/APAP 5/325 TAB PO PRN ×2 (11:37→13:02)
[2018-09-04] MEDS ORDERED: OXYCODONE/APAP 5/325 TAB PO PRN (11:37)
[2018-09-04] MEDS ORDERED: ACETAMINOPHEN 325 MG TAB PO PRN (11:37)
[2018-09-04] MEDS ORDERED: PROMETHAZINE HCL 25 MG/ML INJ IVP PRN ×2 (11:37→13:02)
[2018-09-04] MEDS: HYDROmorphONE/DILAUDID 2 MG/ML INJ IVP PRN ×5 (11:40→12:20)
[2018-09-04] MEDS ORDERED: HYDROmorphONE/DILAUDID 2 MG/ML INJ ONE (11:43)
[2018-09-04] MEDS ORDERED: KETOROLAC 15 MG/1 ML SDV ONE (11:55)
[2018-09-04] MEDS: KETOROLAC 15 MG/1 ML SDV IVP SCH ×2 (12:00→18:02)
[2018-09-04] MEDS ORDERED: LR 1,000 ML IV SCH (12:00)
--- NOTE | 2018-09-04 12:27 | POSTANESTH ---
Post Anesthetic Evaluation Cardiovascular Status: Normal, Stable Respiratory Status: Normal, Stable Level of Consciousness/Mental Status: Can Participate in Eval Pain Control: Inadeq, Add Tx Required Nausea/Vomiting Control: Adequate, Prn Tx Ordered Complications Possibly Related to Anesthesia: None Noted
[2018-09-04] MEDS ORDERED: oxyCODONE IR 5 MG TAB PO PRN (13:02)
[2018-09-04] MEDS ORDERED: MEPERIDINE 25 MG/0.5 ML AMP IVP PRN (13:02)
[2018-09-04] MEDS ORDERED: ALBUTEROL 3 ML DEYVIAL IH PRN (13:02)
[2018-09-04] MEDS ORDERED: LABETALOL HCL 5 MG/ML 20 ML MDV IVP PRN (13:02)
[2018-09-04] MEDS ORDERED: ACETAMINOPHEN 500 MG TAB PO PRN (13:02)
[2018-09-04] MEDS ORDERED: NALOXONE HCL 0.4 MG/ML INJ IVP PRN (13:02)
[2018-09-04] MEDS ORDERED: DEXAMETHASONE 4 MG/ML VIAL IVP PRN (13:02)
[2018-09-04] MEDS ORDERED: PHENYLEPHRINE HCL 100 MCG/ML SYR IVP PRN (13:02)
[2018-09-04] MEDS ORDERED: METOCLOPRAMIDE 10 MG/2 ML VIAL IVP PRN (13:02)
[2018-09-04] MEDS ORDERED: LR 500 ML IV PRN (13:02)
[2018-09-04] MEDS ORDERED: HYDROmorphONE/DILAUDID 2 MG/ML INJ IVP PRN (13:02)
[2018-09-04] MEDS ORDERED: ONDANSETRON 4 MG/2 ML VIAL IVP PRN (13:02)
[2018-09-04] MEDS ORDERED: fentaNYL 100 MCG/2 ML INJ IVP PRN (13:02)
--- NOTE | 2018-09-04 13:11 | GOP ---
[f rep st] OPERATIVE REPORT DATE OF OPERATION: SURGEON: Varsha Noriega MD PREOPERATIVE DIAGNOSIS: Intra-articular left distal humerus fracture. POSTOPERATIVE DIAGNOSIS: Intra-articular left distal humerus fracture. PROCEDURE PERFORMED: 1. Open reduction internal fixation of distal humerus. 2. Ulnar nerve transposition, subcutaneous. 3. Olecranon osteotomy and open reduction and internal fixation of olecranon with K-wires and cercla ge. Construct used was a posterolateral plate, a direct medial plate, and K-wire cerclage for the olecran on osteotomy. FINDINGS: ESTIMATED BLOOD LOSS: Minimal. We did give her another 2 g IV Ancef after the tourniquet was let down for a total of 4 g. The total surgical time was 2.5 hours. Total tourniquet time was 2 hours under tourniquet. The patient was extubated and awake to the PACU in stable condition. INDICATIONS: Please see details of ER H and P. History of old incomplete C2 injury 30 years ago. H ad a mechanical fall onto the left upper extremity. X-rays and CT scan confirm intra-articular dista l humerus fracture. The patient presents for operative fixation. DESCRIPTION OF PROCEDURE: The patient identified in the preoperative holding area. Consent, lateral ity, and preoperative antibiotics were confirmed delivered. All questions were answered. The patien t was brought into the operating room, general anesthesia, placed over onto the OR table. Lateral po sition. Down peroneal nerve and axillary nerve were protected. The right upper extremity was placed in 90 degrees abduction and about 30 degrees elbow flexion. We brought the injured side over on the Keldelice arm rubalcava. We confirmed, under mini fluoroscopy, that we were able to get AP and lat eral views. A nonsterile tourniquet was used. The left upper extremity was prepped and draped in [facility] sterile fashion. Surgical time-out was performed. Two grams Ancef were identified. Esmarch exs anguination. 121 minutes on the tourniquet. A curvilinear incision was made from the midshaft of the humerus down to the ulna border. Full-thick ness tissue flaps. She had about 3-4 cm adipose tissue in the upper part of the arm. We raised full -thickness flaps. We identified the ulnar nerve and released the ulnar nerve proximally and distally . This transposed easily over the medial border of the fracture. We did elect Chevron olecranon ost eotomy with oscillating saw and osteotome. We raised full-thickness triceps flap proximally. The fr acture was essentially in 2 planes. There was a coronal sagittal split through the distal portion ave int line in the olecranon fossa. There was a small capitellar piece. There was a short oblique medi al piece; basically a Y-type configuration. With the arm in about 30 degrees of flexion, we were ab le to provisionally clamp the joint line 1st and reduce this, and then we keyed in the medial piece a nd clamped this and placed K-wires through holding provisional fixation. We chose a posterolateral p late which fit a little bit better than a direct lateral plate. We held this with K-wires and compre ssion screws proximally. We then chose a direct medial plate. We did an anti-glide screw right at t he level of the fracture and then a K-wire and a locking screw distally. We then placed a screw acro ss the capitellar medial epicondyle distal portion. Because we liked the alignment of the fracture f rom a posterior view, we went ahead and fixed 90% of the fracture before we took x-rays and this prov ed to be a reasonable approach. We took fluoroscopic films in AP and lateral view and showed good an atomic fixation with a good radiocapitellar line that was 50% of the capitellum without any evidence of hardware in position in the olecranon fossa or anteriorly into the joint. We then filled in the r emaining screws as needed. We did reduce the olecranon ostia Chevron osteotomy, placed 2 K-wires and cerclage. Reduced this and confirmed this under fluoroscopic views as well. The ulnar nerve was fr eely mobile. It was just medial and anterior to the medial epicondyle. It sat in the soft tissues v chriss nicely. We closed the subcutaneous tissues with 2-0 PDS, superficial subcu with 3-0 Monocryl, an d julio c for skin. 30 cc of 0.2% ropivacaine were injected and a well-padded posterior splint was a pplied. COMPLICATIONS: None. /[id number]/MODL
--- NOTE | 2018-09-04 13:32 | HOSPPROG ---
Hospitalist Progress Note Assessment/Plan: 63 yo F with PMH of spinal cord injury in the 80s with resultant chronic weakness. She fell at home and sustained a distal humeral fracture. 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 Objective: Vital Signs Temp Pulse Resp BP Pulse Ox 36.2 C 62 11 L 133/63 H 99 09/04/18 13:20 09/04/18 07:50 09/04/18 13:06 09/04/18 13:11 09/04/18 13:06 Laboratory Results 09/04/18 06:16 09/04/18 06:16 09/03/18 09/04/18 09/05/18 05:59 05:59 05:59 Intake Total 1900 1300 1300 Output Total 1450 1950 1200 Balance 450 -650 100 PT 12.5 SEC (12.0-15.0) 09/02/18 19:22 INR 0.91 (0.83-1.16) 09/02/18 19:22 - Physical Exam Constitutional: not in pain, chronically ill appearing Eyes: PERRL Ears, Nose, Mouth, Throat: hearing normal Cardiovascular: regular rate and rhythym Respiratory: no respiratory distress Genitourinary: cardenas in urethra Skin: warm Musculoskeletal: other (good cms checks) Neurologic: AAOx3 Psychiatric: interacting appropriately ICD10 Worksheet Patient Problems: Problems Problem Status Onset Humerus distal fracture Acute Abnormal EKG Acute Lower extremity weakness Acute Post-traumatic syrinx Acute UTI (urinary tract infection) Acute Weakness Acute Wound infection Acute
[2018-09-04] MEDS ORDERED: CARBOXYMETHYLCELLULOSE 0.5% 0.4 ML DROPERETTE EACHEYE PRN (13:38)
[2018-09-04] MEDS: [UNRECOGNIZED DRUG - OTHER] PO SCH ×2 (13:45→21:54)
[2018-09-04] MEDS: FUROSEMIDE 20 MG TAB PO SCH (13:45)
[2018-09-04] MEDS: LUBIPROSTONE 24 MCG CAP PO SCH (13:45)
--- NOTE | 2018-09-04 14:11 | ASMTCMCOM ---
CM Note CM Note Notes: Reviewed chart, spoke with Krista Soni NP regarding discharge plan of care, pt's progress. Per Krista, pt to the OR today for repair of a humerus fracture. [facility] Update provided to Catrina at [facility]. CM will continue to follow. Discharge Plan: [facility] Date Signed: 09/04/2018 02:10 PM Electronically Signed By:Margaret Simons RN
[2018-09-04] MEDS: ceFAZolin 2 GM/DEXTROSE 100 ML IV SCH (15:41)
[2018-09-04] MEDS: HYDROmorphONE/DILAUDID 1 MG/ML INJ IVP PRN ×3 (15:48→21:55)
[2018-09-04] MEDS: DOCUSATE SODIUM 100 MG CAP PO SCH (20:59)
[2018-09-05] MEDS: ceFAZolin 2 GM/DEXTROSE 100 ML IV SCH (00:35)
[2018-09-05] MEDS: KETOROLAC 15 MG/1 ML SDV IVP SCH ×2 (00:35→06:06)
[2018-09-05] MEDS: HYDROmorphONE/DILAUDID 1 MG/ML INJ IVP PRN (01:58)
[2018-09-05] MEDS: BACLOFEN 20 MG TAB PO SCH ×5 (04:42→22:04)
[2018-09-05] MEDS: morphINE SR 15 MG TAB PO SCH ×3 (04:42→22:04)
[2018-09-05] MEDS: morphINE SR 30 MG TAB PO SCH ×3 (04:42→22:04)
[2018-09-05] MEDS: LEVOTHYROXINE 137 MCG TAB PO SCH (06:06)
[2018-09-05] MEDS: oxyCODONE IR 5 MG TAB PO PRN ×5 (06:07→23:54)
[2018-09-05] MEDS: INSULIN LISPRO 100 UNIT/ML SC SCH ×3 (08:08→18:12)
[2018-09-05] MEDS: amLODIPine BESYLATE 5 MG TAB PO SCH (08:37)
[2018-09-05] MEDS: LISINOPRIL 5 MG TAB PO SCH (08:37)
[2018-09-05] MEDS: DOCUSATE SODIUM 100 MG CAP PO SCH ×2 (08:37→22:04)
[2018-09-05] MEDS: SENNOSIDES/DOCUSATE SODIUM TAB PO SCH ×2 (08:38→22:04)
[2018-09-05] MEDS: LUBIPROSTONE 24 MCG CAP PO SCH (10:15)
[2018-09-05] MEDS: FUROSEMIDE 20 MG TAB PO SCH (10:16)
[2018-09-05] MEDS: [UNRECOGNIZED DRUG - OTHER] PO SCH ×2 (10:16→22:03)
--- NOTE | 2018-09-05 13:02 | HOSPPROG ---
Hospitalist Progress Note Assessment/Plan: 63 yo F with PMH of spinal cord injury in the 80s with resultant chronic weakness. She fell at home and sustained a distal humeral fracture. *left distal humeral fracture -s/p ORIF of distal humerus, ulnar nerve transposition, olecranon osteotomy today -resumed her home pain medication dosing- her pain is well managed *mechanical fall -chronic weakness from a C1 spinal cord injury -PT and OT to work with her -she fell due to sliding off slippery sheets *chronic pain on continuous narcotics -home meds resumed -says the IV Dilaudid was not giving her relief in regards to the above *loose stools -most likely from laxatives, will place parameters as when to hold them *DM -holding Metformin -sliding scale *HTN -bp stable *chronic venous stasis w edema -resumed dimethicone cream *spinal cord injury -meds resumed for spasticity *hyponatremia -mild *plan: she will be dc to [facility] when ready Subjective: Ale is not c/o pain, overall feeling fine. Objective: Vital Signs Temp Pulse Resp BP Pulse Ox 36.4 C 75 16 126/55 H 90 L 09/05/18 11:52 09/05/18 11:52 09/05/18 11:52 09/05/18 11:52 09/05/18 11:52 Laboratory Results 09/05/18 04:56 09/04/18 06:16 09/04/18 09/05/18 09/06/18 05:59 05:59 05:59 Intake Total 1300 3280 Output Total 1950 2350 200 Balance -650 930 -200 PT 12.5 SEC (12.0-15.0) 09/02/18 19:22 INR 0.91 (0.83-1.16) 09/02/18 19:22 - Physical Exam Constitutional: no apparent distress, not in pain, chronically ill appearing, obese Eyes: PERRL Ears, Nose, Mouth, Throat: hearing normal Cardiovascular: regular rate and rhythym Respiratory: no respiratory distress, reduced air movement (left base) Gastrointestinal: normoactive bowel sounds Skin: warm, other (has significant hyperpigmentation in her bilateral lower extremities) Musculoskeletal: generalized weakness Neurologic: AAOx3 Psychiatric: interacting appropriately ICD10 Worksheet Patient Problems: Problems Problem Status Onset Humerus distal fracture Acute Abnormal EKG Acute Lower extremity weakness Acute Post-traumatic syrinx Acute UTI (urinary tract infection) Acute Weakness Acute Wound infection Acute
--- NOTE | 2018-09-05 13:24 | SOAPPROG ---
SOAP Progress Note Assessment/Plan: Assessment: Plan: 09/05/18 13:21 POD 1. s/p L distal humerus ORIF. NVI. Doing well. Pain under control Elevate L arm Appreciate medical care Agree with Rehab/SNF fu with Dr Noriega in 7-10 days for wound check, splint removal Subjective: POD 1. Feeling well. Objective: Vital Signs Temp Pulse Resp BP Pulse Ox 36.4 C 75 16 126/55 H 90 L 09/05/18 11:52 09/05/18 11:52 09/05/18 11:52 09/05/18 11:52 09/05/18 11:52 Laboratory Results 09/05/18 04:56 09/04/18 06:16 09/04/18 09/05/18 09/06/18 05:59 05:59 05:59 Intake Total 1300 3280 Output Total 1950 2350 200 Balance -650 930 -200 PT 12.5 SEC (12.0-15.0) 09/02/18 19:22 INR 0.91 (0.83-1.16) 09/02/18 19:22 Mobile fingers intact sensation to MRU intact interossei abdomen soft ICD10 Worksheet Patient Problems: Problems Problem Status Onset Humerus distal fracture Acute Abnormal EKG Acute Lower extremity weakness Acute Post-traumatic syrinx Acute UTI (urinary tract infection) Acute Weakness Acute Wound infection Acute
[2018-09-06] MEDS: LEVOTHYROXINE 137 MCG TAB PO SCH (05:09)
[2018-09-06] MEDS: LEVOTHYROXINE 125 MCG TAB PO SCH (05:09)
[2018-09-06] MEDS: morphINE SR 15 MG TAB PO SCH ×2 (05:10→13:51)
[2018-09-06] MEDS: BACLOFEN 20 MG TAB PO SCH ×3 (05:10→13:52)
[2018-09-06] MEDS: morphINE SR 30 MG TAB PO SCH ×2 (05:10→13:51)
[2018-09-06] MEDS: INSULIN LISPRO 100 UNIT/ML SC SCH ×2 (09:31→13:49)
[2018-09-06] MEDS: LISINOPRIL 5 MG TAB PO SCH (10:26)
[2018-09-06] MEDS: amLODIPine BESYLATE 5 MG TAB PO SCH (10:26)
[2018-09-06] MEDS: oxyCODONE IR 5 MG TAB PO PRN (10:27)
[2018-09-06] MEDS: DOCUSATE SODIUM 100 MG CAP PO SCH (10:30)
[2018-09-06] MEDS: [UNRECOGNIZED DRUG - OTHER] PO SCH (10:31)
[2018-09-06] MEDS: SENNOSIDES/DOCUSATE SODIUM TAB PO SCH (10:31)
[2018-09-06] MEDS: FUROSEMIDE 20 MG TAB PO SCH (10:31)
[2018-09-06] MEDS: LUBIPROSTONE 24 MCG CAP PO SCH (10:40)
--- NOTE | 2018-09-06 10:59 | PDIAF ---
- Diagnosis Diagnosis: humeral fx Code Status: Do Not Resuscitate - Medication Management Discharge Medications: electronically signed and located in the Home Medication List. PICC Care - Routine: N/A - Orders Services needed: Registered Nurse, Physical Therapy, Occupational Therapy Diet Recommendation: no restrictions on diet Additional Instructions: ORTHO: fu in 7-10 days postop for splint removal, wound check and xrays. Sling for comfort Keep splint clean and dry - Follow Up Care Current Providers and Referrals: Patient,NotPresent [Unknown] - As per Instructions
[2018-09-06 11:33] VITALS: BP 125/59
--- NOTE | 2018-09-06 12:08 | GDS ---
[f rep st] DISCHARGE SUMMARY DISCHARGE DIAGNOSES: 1. Mechanical fall. 2. Left distal humeral fracture. 3. Chronic pain, on continuous narcotics. 4. Diabetes mellitus. 5. Hypertension. 6. Chronic venous stasis. 7. History of spinal cord injury. 8. Hyponatremia. CONSULTATIONS: Dr. Varsha Noriega of Orthopedics. STUDIES AND PROCEDURES: Surgical intervention of the left distal humeral fracture. PHYSICAL EXAM: GENERAL: The patient is alert. VITAL SIGNS: Afebrile at 36.6, pulse is 68, respira tory rate 14, blood pressure is 124/51. She is saturating 96% on 3 L. I have seen and evaluated the patient on the day of discharge. HOSPITAL COURSE: Patient is a 63-year-old female who suffered a mechanical fall, presented to the em ergency room with complaints of pain. She was evaluated and diagnosed with. 1. Left distal humeral fracture. During this hospitalization, she received a consultation from Dr. Varsha Noriega of Orthopedics. ORIF was performed with an ulnar nerve transposition. She has been tr eated with pain medication. She is in a sling. She will follow up with Dr. Noriega in the outpatient s etting. 2. Mechanical fall. This is an acute on chronic problem for the patient. She will continue physica l therapy and occupational therapy. 3. Chronic pain, on continuous narcotics. Her home medications have been continued. 4. Diabetes. Metformin has been re-initiated at the time of disposition. 5. Hypertension this is stable. 6. Chronic venous stasis with edema. This is at baseline. 7. History of spinal cord injury. This is at baseline as well. 8. Hyponatremia. This is stable. DISPOSITION: The patient will be discharged to intermediate facility for further rehabilitation a nd management. PENDING STUDIES: There are no pending studies. DISCHARGE MEDICATIONS: Please refer to EMR form. New medications include stool softeners. I have n ot discontinued the patient's previously prescribed home medications to the best of my knowledge. FOLLOWUP: Will be with Dr. Noriega in 7 to 10 days. TIME SPENT WITH PATIENT: I spent greater than 35 minutes in the care, coordination, and management o f the patient's disposition. /[id number]/MODL
--- NOTE | 2018-09-06 12:17 | ASMTLACE ---
LACE Length of stay for Answers: 4-6 days current admission Acuity / Level of Answers: Yes Care: Did the patient have an inpatient admission? Comorbidities - select Answers: Diabetes (uncontrolled or all that apply controlled) Opioid dependence / Chronic pain Other Notes: [place] palsy; Hypothyroi d # of Emergency department Answers: 1-2 visits in the last 6 months Score: 14 Date Signed: 09/06/2018 12:17 PM Electronically Signed By:FRANNY Padilla
--- NOTE | 2018-09-06 12:19 | ASMTCMCOM ---
CM Note CM Note Notes: Pt medically stable for d/c to [facility]. Daja with [facility] confirms they have ins auth. Orders sent in [employer]. IZA Chavarria to call report. Date Signed: 09/06/2018 12:18 PM Electronically Signed By:FRANNY Padilla
--- NOTE | 2018-09-06 15:49 | ASDISCHSUM ---
Discharge Information Plan Status:SNF Medically Cleared to Leave: Discharge Date:09/06/2018 02:12 PM CM D/C Disposition: ADT D/C Disposition:Residential Facility Projected Discharge Date:09/05/2018 11:00 AM Transportation at D/C: Discharge Delay Reason: Follow-Up Date:09/05/2018 11:00 AM Discharge Slot: Final Diagnosis: Placement Information Referral Type:*[facility]NF Referral ID:[id number] Provider Name:[facility] Address 1:[address] Address 2: City:[place] Selection Factors: State:[place] Patient Contact Information Contact Name:CHANG Relationship: Address:[address] [facility] Work Phone: [facility]:[place] Alternate Phone: State/Zip Code:[place] [address] Email: Financial Information Financial Class:Medicare Advantage Plans Primary Plan Desc:[facility] [employer] Primary Plan Number:[id number] Secondary Plan Desc: Secondary Plan Number: Assessment Information LACE LACE Length of stay for Answers: 4-6 days current admission Acuity / Level of Answers: Yes Care: Did the patient have an inpatient admission? Comorbidities - select Answers: Diabetes (uncontrolled or all that apply controlled) Opioid dependence / Chronic pain Other Notes: Van palsy; Hypothyroi d # of Emergency department Answers: 1-2 visits in the last 6 months Score: 14 Date Signed: 09/06/2018 12:17 PM Electronically Signed By:FRANNY Padilla [facility] CM Progress Note CM Note CM Note Notes: Met with pt, she is admitted to hospital for a broken arm after slipping off her bed. Her situation is complicated by a hx of C1 injury which has resulted in parasthesia/weakness but with full sensation. PT/OT recommend SNF, pt was recently at [facility] and would like to go back. Pt lives at home with her and son. DC Plan: SNF Date Signed: 09/03/2018 03:08 PM Electronically Signed By:Lilia Marsh RN [facility] CM Progress Note CM Note CM Note Notes: Reviewed chart, spoke with Krista Soni NP regarding discharge plan of care, pt's progress. Per Krista, pt to the OR today for repair of a humerus fracture. Referral previously sent to [facility]. Update provided to Catrina at [facility]. CM will continue to follow. Discharge Plan: [facility] Date Signed: 09/04/2018 02:10 PM Electronically Signed By:Margaret Simons RN [facility] Progress Note CM Note CM Note Notes: Pt medically stable for d/c to [facility]. Daja with [facility] confirms they have ins auth. Orders sent in [employer]. IZA Chavarria to call report. Date Signed: 09/06/2018 12:18 PM Electronically Signed By:FRANNY Padilla Intervention Information Intervention Type:*IM-Signed Date of Service:09/06/2018 11:26 AM Patient Type:Inpatient Staff Member:Heidi Nguyen Hours: Discipline: Severity: Comment:
== END 2018-09-06 14:12 | DRG 493 ==
LOC: EDUNIT# → OBSVTOIN 18:06 → F3N 21:30
PROVIDERS: ADMIT Internal Medicine; ATTEND Internal Medicine
DX: S42.452A Displaced fracture of lateral condyle of left humerus, initial encounter for closed fracture (principal); E87.1 Hypo-osmolality and hyponatremia; W01.0XXA Fall on same level from slipping, tripping and stumbling without subsequent striking against object, initial encounter; Y92.013 Bedroom of single-family (private) house as the place of occurrence of the external cause; G89.29 Other chronic pain; E11.9 Type 2 diabetes mellitus without complications; I10 Essential (primary) hypertension; I87.8 Other specified disorders of veins; R53.1 Weakness; E03.9 Hypothyroidism, unspecified; K59.00 Constipation, unspecified; Z79.84 Long term (current) use of oral hypoglycemic drugs; Z66 Do not resuscitate
CPT/HCPCS: 96374; 97162-GP; 97164-GP; 97166-GO; 97168-GO; 97530-GO; 97530-GP; 97535-GO; C1713; J0690; J1100; J1170; J1815; J1885; J2001; J2250; J2270; J2704; J2795; J3010